=== PATIENT | male | born 1950 | race Caucasian/White ===

== ENCOUNTER 2017-12-29 18:15 | Inpatient (IN) ==
--- NOTE | 2017-12-29 18:29 | Emergency Department Note ---
Disposition Clinical Impression: Acute renal insufficiency, Hx of congestive heart failure UTI (urinary tract infection) Qualifiers: Urinary tract infection type: acute cystitis Hematuria presence: with hematuria Qualified Code(s): N30.01 - Acute cystitis with hematuria Disposition: Admitted As Inpatient Condition: Undetermined [facility]: [facility] [Primary Care Provider[facility] - Forms: ED Satisfaction Letter Time of Disposition: 19:53 General Adult HPI - General Chief complaint: ED Fall Stated complaint: weakness Time Seen by Provider: 12/29/17 18:17 Source: patient, EMS Mode of arrival: EMS Limitations: no limitations Nursing Notes Reviewed: Yes Vital Signs Reviewed: Yes - History of Present Illness HPI Narrative: 68-year-old male as a transfer from the [facility]. The patient currently lives at a senior care and his sponsor took him to the [place] urgent care after the patient fell. The patient was complaining of back pain so he was given an injection of Toradol. In addition the patient was seen at the [facility] where he had lab work that demonstrated acute renal failure with a creatinine of 4. The patient was subsequently transferred to [facility] emergency department for further evaluation and workup. The patient has a history of atypical schizophrenia and is expressing flight of ideas. The patient is alert and he is oriented to person place and time. He is answering all questions appropriately but again is experiencing some flight of ideas. The patient has noted to have some foul smelling urine. He denies any other complaints other than back pain at this time. Patient's hemoglobin is 14.4. Platelet count 254. Potassium 4.3. BUNs 51. Creatinine 4.04. GFR 15.8. These labs were performed at the [facility]. - Related Data Allergies Allergy/AdvReac Type Severity Reaction Status Date / Time haloperidol [From Haldol] AdvReac Intermediate Agitated Verified 12/29/17 18:23 All systems ED: reviewed and negative except as stated. Constitutional: Reports: weakness. Denies: fever, chills ENT ED: Denies: congestion Cardiovascular: Denies: chest pain Respiratory: Denies: dyspnea Gastrointestinal: Denies: abdominal pain Musculoskeletal: Reports: back pain. Denies: neck pain, arthralgia, myalgia Integumentary: Reports: lesions Neurological: Reports: weakness. Denies: headache, numbness, paresthesias, confusion Past Medical History - Past Medical History Attestation: Yes The following information was validated with the patient. 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) - Social History Smoking Status: Never smoker Alcohol use: Reports: none Drug use: Reports: none Physical Exam - General Limitations: no limitations General appearance: alert, in no apparent distress - Head Head exam: atraumatic, normocephalic, normal inspection - Eye Eye exam: Present: normal appearance, PERRL, EOMI - ENT ENT exam: normal exam, normal oropharynx, mucous membranes moist - Neck Neck exam: Present: normal inspection, full ROM, trachea midline - Chest Chest inspection: Present: normal inspection, symmetric chest wall rise - Respiratory Respiratory exam: Present: normal lung sounds bilaterally - Cardiovascular Cardiovascular exam: Present: regular rate, normal rhythm, normal heart sounds - Abdominal Exam Abdominal exam: Present: soft, Non-Tender, other (Right inguinal wound). Absent : tenderness, distention, guarding, rebound, rigidity - Extremities Exam Extremities exam: Present: normal inspection, full ROM. Absent: tenderness, pedal edema - Neurological Exam Neurological exam: Present: alert, oriented X3, CN II-XII intact - Expanded Neurological Exam Patient oriented to: Present: person, place, time Speech: Present: fluid speech Cranial nerves: EOM function (II, III, IV, ): Normal, facial sensation (V): Normal, facial palsy (VII): Normal Motor strength - LUE: 4/5 Motor strength - RUE: 4/5 Motor strength - LLE: 4/5 Motor strength - RLE: 4/5 Sensory exam upper extremity: light touch: Normal Sensory exam lower extremity: light touch: Normal Coma Scale Eye Opening: Spontaneous Coma Scale Motor Response: Obeys Commands Coma Scale Verbal Response: Oriented Coma Scale Total: 15 - Psychiatric Psychiatric exam: Present: other (Flight of ideas) Course Vital Signs Temperature 97.9 F 12/29/17 18:25 Pulse Rate 84 12/29/17 18:25 Respiratory Rate 16 12/29/17 18:25 Blood Pressure 132/77 12/29/17 18:25 O2 Sat by Pulse Oximetry 97 12/29/17 18:25 Temperature 97.9 F 12/29/17 18:35 Pulse Rate 84 12/29/17 18:35 Respiratory Rate 16 12/29/17 18:35 Blood Pressure 132/77 12/29/17 18:35 O2 Sat by Pulse Oximetry 97 12/29/17 18:35 Oxygen Delivery Oxygen Delivery Room Air Medical Decision Making - MDM Narrative Medical decision making narrative: Patient's workup in the emergency department demonstrates findings consistent with a urinary tract infection. The [facility] labs revealed a creatinine of 4.04 which were repeated here at [facility]. The patient had a CT of his head, cervical spine, lumbar and thoracic spines as well as pelvis. They revealed no acute process. The patient's pelvis was imaged due to a right inguinal wound that is noted in his right inguinal region that he states has been there for "years". The patient was found to have a urinary tract infection that is nitrite positive. She was given 1 g or Rocephin here in the emergency department. Given the patient's elevated creatinine, he was administered 1 L of IV fluids here in the ED. This was also the recommendation by Dr. Bennett get her and nephrology. He had no further recommendations other than a CPK level. The patient does take Seroquel and has a history of extrapyramidal effects but this was primarily associated with haloperidol in the past. The patient is not exhibiting any extrapyramidal effects at this time. He does have a flight of ideas which is likely associated with the patient's known history of schizophrenia. The patient is afebrile and is not tachycardic here in the emergency department. We will admit the patient to the hospital at this time for further workup and care and nephrology consult which was placed. Accepted by Dr. Harry. - Medical Records Medical records reviewed: Yes I reviewed the patient's medical records. - Lab Data Lab Results 12/29/17 Range/Units 18:36 Urine Color Yellow (Yellow) Urine Clarity Cloudy A (Clear) Urine pH 7.0 (5.0-8.0) pH Units Ur Specific [place] 1.020 (1.010-1.025) Urine Protein 100 H (Neg-Trace) mg/dL Urine Glucose (UA) Normal (Normal) mg/dL Urine Ketones Negative (Negative) mg/dL Urine Blood Large H (Negative) Urine Nitrite Positive A (Negative) Urine Bilirubin Negative (Negative) Urine Urobilinogen Normal (Normal) mg/dL Ur Leukocyte Esterase Large H (Negative) Urine Microscopic RBC Present (0-3) per hpf Urine Microscopic WBC TNTC H (0-3) per hpf Urine Bacteria Present (None-Few) per hpf Ur Culture Indicated? YES A (NO) - Radiology Data Radiology results reviewed: Yes I reviewed the patient's radiology results. Cervical Spine CT 12/29/17 18:23 IMPRESSION: No acute abnormality of the cervical spine. Severe degenerative changes with canal stenosis and foraminal stenosis at multiple levels. D/ / 12/29/2017 19:28:58 Delfina Hobbs MD / earnold Interpreting Provider: Delfina Hobbs MD Head CT 12/29/17 18:23 IMPRESSION: No acute intracranial abnormality. D/ / Delfina Hobbs MD / Delfina Hobbs MD Interpreting Provider: Delfina Hobbs MD Lumbar Spine CT 12/29/17 18:23 IMPRESSION: No evidence of acute traumatic injury of the thoracic or lumbar spine. Degenerative changes as described. D/ / Miguel Houston / Miguel Houston Interpreting Provider: Miguel Houston Pelvis CT 12/29/17 18:23 IMPRESSION: Nonspecific soft tissue air density in the left gluteal region Bilateral inguinal hernias. The hernia on the right contains multiple small bowel loops without obstruction. Hernia on the left contains fat extending inferiorly into the scrotal region. No inguinal ulceration or abscess. D/ / Pete Blancas / Pete Blancas Interpreting Provider: Pete Blancas Thoracic Spine CT 12/29/17 18:23 IMPRESSION: No evidence of acute traumatic injury of the thoracic or lumbar spine. Degenerative changes as described. D/ / Miguel Houston / Miguel Houston Interpreting Provider: Miguel Houston - EKG Data EKG #1 EKG attestation: Yes I reviewed and interpreted this EKG. EKG results narrative: Heart rate 85 beats for minute. Normal sinus rhythm. No ST elevation or ST depression noted.
[2017-12-29 18:48] LABS: Bilirubin,Urine Negative (Negative); Blood,Urine Large (Negative); Clarity,Urine Cloudy (Clear); Color,Urine Yellow (Yellow); Glucose,Urine (UA) Normal (Normal); Ketones,Urine Negative (Negative); Leukocyte Esterase,Urine Large (Negative); Nitrite,Urine Positive (Negative); Protein,Urine 100 mg/dL (Neg-Trace); Urobilinogen,Urine Normal (Normal)
[2017-12-29 18:54] LABS: WBC,Urine TNTC per hpf (0-3)
[2017-12-29 18:55] LABS: Bacteria,Urine Present per hpf (None-Few); RBC,Urine Present per hpf (0-3)
[2017-12-29] MEDS ORDERED: cefTRIAXone 1,000 MG in Water for inj. (sterile) 20 ML 10 ML IVP ONE (19:01)
--- NOTE | 2017-12-29 19:13 | Emergency Department Note ---
Disposition Clinical Impression: Acute renal insufficiency Disposition: Admitted As Inpatient Forms: ED Satisfaction Letter General Adult HPI - General Chief complaint: ED Weakness Stated complaint: weakness Time Seen by Provider: 12/29/17 18:17 Source: patient, EMS Mode of arrival: EMS Limitations: no limitations - History of Present Illness Pain Scale: 0 - Related Data Allergies Allergy/AdvReac Type Severity Reaction Status Date / Time haloperidol [From Haldol] AdvReac Intermediate Agitated Verified 12/29/17 18:23 Constitutional: Reports: weakness. Denies: fever, chills ENT ED: Denies: congestion Cardiovascular: Denies: chest pain Respiratory: Denies: dyspnea Gastrointestinal: Denies: abdominal pain Musculoskeletal: Reports: back pain. Denies: neck pain, arthralgia, myalgia Integumentary: Reports: lesions Neurological: Reports: weakness. Denies: headache, numbness, paresthesias, confusion Past Medical History - Past Medical History Medical history: Reports: hypertension Surgical history: Reports: other (Cancer resection in right inguinal region) Psychiatric history: Reports: bipolar, schizophrenia - Social History Smoking Status: Never smoker Smokeless Tobacco Status: No Alcohol use: Reports: none Drug use: Reports: none Physical Exam - General Limitations: no limitations General appearance: alert, in no apparent distress Course - Reevaluation(s) Reevaluation #1: Attestation note I did independently examine and verified the physical examination findings evaluation workup and disposition of this patient. We had independent face-to- face examination and discussion. The patient was seen with the emergency medicine resident Dr. Ahmet Coronado I examined this patient and my medical decision-making was reviewed with the Resident Physician/WET FINISHER WOOL/PA. I agree with the documented findings, disposition and treatment plan as described except to the extent set forth below. Briefly: 59-year-old male by EMS from the [facility]. Patient lives in a fdc there his sponsor took him after he had a fall to the urgent care at the [facility] where upon he was given IM Toradol and had some lab test drawn. She will that he has acute renal insufficiency with a creatinine of 4 which is new and different form. Patient does have a typical schizophrenia and has some flight of ideas here. He is in no acute distress he is afebrile stable vital signs. Patient will get imaging and labs with admission. An IV fluids. Admission disposition pending, provided 30 minutes of critical care service for this patient Time: 19:11 Vital Signs Temperature 97.9 F 12/29/17 18:25 Pulse Rate 84 12/29/17 18:25 Respiratory Rate 16 12/29/17 18:25 Blood Pressure 132/77 12/29/17 18:25 O2 Sat by Pulse Oximetry 97 12/29/17 18:25 Temperature 97.9 F 12/29/17 18:35 Pulse Rate 84 12/29/17 18:35 Respiratory Rate 16 12/29/17 18:35 Blood Pressure 132/77 12/29/17 18:35 O2 Sat by Pulse Oximetry 97 12/29/17 18:35 Oxygen Delivery Oxygen Delivery Room Air Medical Decision Making - Lab Data Lab Results 12/29/17 Range/Units 18:36 Urine Color Yellow (Yellow) Urine Clarity Cloudy A (Clear) Urine pH 7.0 (5.0-8.0) pH Units Ur Specific [place] 1.020 (1.010-1.025) Urine Protein 100 H (Neg-Trace) mg/dL Urine Glucose (UA) Normal (Normal) mg/dL Urine Ketones Negative (Negative) mg/dL Urine Blood Large H (Negative) Urine Nitrite Positive A (Negative) Urine Bilirubin Negative (Negative) Urine Urobilinogen Normal (Normal) mg/dL Ur Leukocyte Esterase Large H (Negative) Urine Microscopic RBC Present (0-3) per hpf Urine Microscopic WBC TNTC H (0-3) per hpf Urine Bacteria Present (None-Few) per hpf Ur Culture Indicated? YES A (NO)
[2017-12-29] MEDS ORDERED: 0.9 % Sodium Chloride 1,000 ML IVC ONE (19:26)
[2017-12-29 20:26] LABS: BUN/Creatinine Ratio 14 (6-26); Blood Urea Nitrogen 57 mg/dL (8-23); Calcium 9.5 mg/dL (8.6-10.3); Carbon Dioxide 22 mEq/L (23-29); Chloride 105 mEq/L (98-107); Creatine Kinase 302 Units/L (30-223); Glucose 220 mg/dL (70-105); Osmolality,Calculated 305 (280-300); Potassium 4.2 mEq/L (3.5-5.1); Sodium 136 mEq/L (136-145); eGFR For African Americans 18 (> 60); eGFR For Non-African Americans 14 (> 60)
[2017-12-29 20:27] LABS: Troponin I < 0.03 ng/mL (< 0.04)
[2017-12-29] MEDS ORDERED: Naloxone 0.4 MG/ML INJ IVP PRN (20:34)
[2017-12-29] MEDS ORDERED: Acetaminophen 325 MG TABLET PO PRN (20:34)
[2017-12-29] MEDS ORDERED: *HR* HYDROcodone/Acet 5/325 mg TABLET PO PRN (20:34)
[2017-12-29 21:00] LABS: Sodium, Urine 63.7 mEq/L
[2017-12-29] MEDS: 0.9 % Sodium Chloride 1,000 ML IVC SCH (21:19)
--- NOTE | 2017-12-29 21:33 | Internal Med History&Physical ---
Date of Encounter: 12/29/17 Time of Encounter: 20:00 Internal Medicine - H&P: HPI Chief complaint: Fall Admitted From: Long-term Nursing Facility Plans for Post Hospital Care: Transfer Detention Care History of present illness: Mr. Mendiola is a 67 year old male transferred from [facility] to our ER for fall and acute renal failure. Possible medical history is significant for schizophrenia. Patient presented to [facility] from group living home for fall. Patient has mechanical fall today when he went to the bathroom. Patient denies loss of consciousness, denies dizziness, denies head injury. Patient has no chest pain , shortness of breath, nausea, vomiting, diarrhea, or fever. Patient denies urination symptoms like dysuria or burning on urination. In [facility], patient was found creatinine high to 4.03. Patient said he walks well until 4 weeks ago, when he starts to use walker because of physical deconditioning. Patient has difficult to go to bathroom by himself and has decreased water intake. In our ER, UA shows UTI. Patient was admitted for acute renal failure and UTI. Past Med Surg Social Fam HX - Past Medical History Medical history: hypertension Psychiatric history: bipolar, schizophrenia - Past Surgical History Surgical History: other (Cancer resection in right inguinal region) Additional surgical history: kidney stone removal - Social History Smoking Status: Never smoker Smokeless Tobacco Status: No Alcohol use: none Drug use: none - Family History Mother History Unknown: Yes Internal Medicine - H&P: Meds 3 Allergy/AdvReac Type Severity Reaction Status Date / Time haloperidol [From Haldol] AdvReac Intermediate Agitated Verified 12/29/17 18:23 All Systems PM: A 10-system review of systems was performed and is negative for pertinent findings except as documented above in the HPI. - Constitutional Vitals: Temp Pulse Resp BP Pulse Ox 97.9 F 79 16 151/82 95 12/29/17 21:07 12/29/17 21:07 12/29/17 21:07 12/29/17 21:07 12/29/17 21:07 General appearance: Present: A&O X 3, no acute distress, answers questions appropriately - Head Head exam: Present: atraumatic, normocephalic - Eye Eye exam: Present: PERRL, conjuntiva pink, sclera anicteric Pupils: Present: PERRL - Neck Neck exam general surgery: Present: supple, trachea midline. Absent: lymphadenopathy - Respiratory Respiratory exam: Present: CTAB. Absent: accessory muscle use, rales, rhonchi, wheezes - Cardiovascular Cardiovascular exam: Present: RRR, +S1, +S2. Absent: diastolic murmur, gallop, rubs, systolic murmur - GI/Abdominal GI/Abdominal exam: Present: normal bowel sounds, soft, no peritoneal signs. Absent: distended, tenderness - Extremities Exam Extremities exam: Present: warm, radial pulses palpable and symmetrical. Absent : calf tenderness, cyanotic, pedal edema - Neurological Exam Neurological exam: Present: CN II-XII intact, oriented X3, no focal deficits. Absent: pronater drift, facial droop, speech deficit - Skin Skin exam: Present: dry, intact Internal Med - H&P Results - Labs CBC & Chem 7: 12/29/17 18:24 - Assessment and plan (1) Acute renal failure Current Visit: Yes Status: Acute Assessment and plan: Etiology is undetermined. Probably caused by decreased fluid intake. - Nephrology consult called by ER, recommend check CK, which is a mild elevated at 302 - Continue IV fluid - Check urine creatinine and the urine sodium - Renal ultrasound to rule out obstruction - Closely monitor renal function, avoid nephrotoxic medications Qualifiers: Acute renal failure type: unspecified Qualified Code(s): N17.9 - Acute kidney failure, unspecified (2) Schizophrenia Current Visit: Yes Status: Acute Assessment and plan: Continue closely monitor patient and continue intramuscular haldol after discharge. Qualifiers: Schizophrenia type: unspecified Qualified Code(s): F20.9 - Schizophrenia, unspecified (3) UTI (urinary tract infection) Current Visit: Yes Status: Acute Assessment and plan: Rocephin IV. Follow up urine culture Qualifiers: Urinary tract infection type: acute cystitis Hematuria presence: without hematuria Qualified Code(s): N30.00 - Acute cystitis without hematuria (4) Tobacco abuse Current Visit: Yes Status: Acute Assessment and plan: Will place patient on nicotine patch. (5) Hx of congestive heart failure Current Visit: Yes Status: Acute Assessment and plan: Appears euvolemic at this point. Closer monitor fluid status and started with low rate IV fluid for acute renal failure - Time Spent With Patient Total time spent is greater than 50% in coordination of care (as documented) at patient's floor/unit and/or counseling patient: 40 minutes Greater than 35 minutes
[2017-12-29] MEDS: Nicotine 21 MG PATCH.TD24 TD SCH (23:09)
[2017-12-30 05:30] LABS: Basophils % 0.1 %; Hemoglobin 13.5 g/dL (12.9-16.9); Immature Granulocytes % 0.5 % (0-4); Lymphocytes # 0.6 K/mcL (0.6-4.6); Lymphocytes % 6.5 %; Mean Corpuscular HGB Conc 33.8 g/dL (31.6-35.5); Mean Corpuscular Volume 88.9 fL (83.0-100.0); Mean Platelet Volume 10.3 fL (9.4-12.4); Monocytes # 0.2 K/mcL (0.0-1.3); Monocytes % 2.7 %; Neutrophils # 7.7 K/mcL (1.6-8.9); Platelet Count 224 K/mcL (140-400); Red Cell Distribution Width 13.5 % (11.5-14.5); Segmented Neutrophils % 90.2 %
[2017-12-30] MEDS: *HR* Heparin 5,000 UNIT/ML VIAL SQ SCH ×2 (05:41→17:41)
[2017-12-30 05:47] LABS: Calcium 9.4 mg/dL (8.6-10.3); Magnesium 2.3 mg/dL (1.6-2.6); Phosphorous 2.9 mg/dL (2.7-4.5); Potassium 4.5 mEq/L (3.5-5.1)
[2017-12-30] MEDS: 0.9 % Sodium Chloride 1,000 ML IVC SCH (06:45)
[2017-12-30 07:48] LABS: Estimated Average Glucose 148 mg/dl; Hemoglobin A1C 6.8 %
[2017-12-30] MEDS: Nicotine 21 MG PATCH.TD24 TD SCH (09:38)
--- NOTE | 2017-12-30 11:20 | Nephrology Consult Note ---
Date of Encounter: 12/30/17 Time of Encounter: 09:55 Assessment and Plan (1) Acute renal failure Current Visit: Yes Status: Acute Nonoliguric and no baseline prior lab data immediately available, so I am unable to determine if this is MENA vs MENA on CKD vs progressive CKD. I recommend requesting records from the [place]. Will start renal work up with renal U/S, serologies and agree with empiric antibiotics for the purulent appearing urine. His UA did reveal Proteinuria of 100 and Microscopic hematuria, so will check serologies and check U P/C and U M/ C ratios. In the meantime, he does not have urgent dialysis indications, so continue following a renal protective and conservative strategy by avoiding nephrotoxins such as NSAIDs, IV contrast, Vanco, Bactrim; to collect strict I/Os, daily weights; to follow a renal diet; to dose Rx that are renally cleared by GFR. Thank you for having consulting the [facility] group. Will follow with you. Qualifiers: Acute renal failure type: unspecified Qualified Code(s): N17.9 - Acute kidney failure, unspecified (2) UTI (urinary tract infection) Current Visit: Yes Status: Acute Qualifiers: Urinary tract infection type: acute cystitis Hematuria presence: without hematuria Qualified Code(s): N30.00 - Acute cystitis without hematuria (3) Proteinuria Current Visit: Yes Status: Acute Qualifiers: Proteinuria type: unspecified Qualified Code(s): R80.9 - Proteinuria, unspecified (4) Hematuria Current Visit: Yes Status: Acute Qualifiers: Hematuria type: unspecified type Qualified Code(s): R31.9 - Hematuria, unspecified History of Present Illness - Reason for Consult Consult date: 12/29/17 Acute Kidney Injury Requesting physician: Morgan Harry - Chief Complaint MENA - History of Present Illness Pete Mendiola is a pleasant 67 y/o male who presented with findings of renal dysfunction. This is his first encounter / hospitalization in the [facility] system and there are no baseline SCr or other labs in our inpatient or outpatient EHR. He stated that he does not have a known renal function; however, he has the most impressive pressured speech from his reported hx of Schizoprenia, and was not able to focus or provide very little meaningful history. He said he has bee taking "Advil" but then he quickly reverted to talking about events from 30-40 years ago. He was not able to provid a family history, recent history of events or any more ROS. The floor RN was present and said that the toth that she had just drained was purulent appearing. 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 Past Med Surg Social Fam HX - Past Medical History Medical history: hypertension Psychiatric history: bipolar, schizophrenia - Past Surgical History Surgical History: other Additional surgical history: kidney stone removal - Social History Smoking Status: Never smoker Smokeless Tobacco Status: No Alcohol use: none Drug use: none - Family History Mother History Unknown: Yes Medications and Allergies Aspirin [Lo-Dose Aspirin EC] 81 mg PO DAILY 12/30/17 [History] Cholecalciferol (D-3) [Vitamin D] 1,000 unit PO DAILY 12/30/17 [History] Furosemide [Lasix] 20 mg PO DAILY 12/30/17 [History] Methocarbamol [Robaxin-750] 750 mg PO BID PRN 12/30/17 [History] Metoprolol Succinate [Toprol Xl] 25 mg PO DAILY 12/30/17 [History] Quetiapine Fumarate [Seroquel] 200 mg PO QAM 12/30/17 [History] Quetiapine Fumarate [Seroquel] 400 mg PO QPM 12/30/17 [History] Terazosin HCl 2 mg PO HS 12/30/17 [History] 3 Allergy/AdvReac Type Severity Reaction Status Date / Time haloperidol [From Haldol] AdvReac Intermediate Agitated Verified 12/30/17 13:26 Review of Systems ROS unobtainable: due to mental status (his mental health history led to forced speach and he was not able to focus and provide any meaningful recent history. ) Exam - Vital Signs Vital signs: Initial Vital Signs Temp Pulse Resp BP Pulse Ox 97.9 F 84 16 132/77 97 12/29/17 18:25 12/29/17 18:25 12/29/17 18:25 12/29/17 18:25 12/29/17 18:25 Vital Signs - Last 8 Hours Temp Pulse Resp BP Pulse Ox 12/30/17 09:40 97 12/30/17 07:00 97.4 F L 87 16 152/81 97 12/30/17 03:49 97.8 F 78 17 131/81 92 Intake and Output 12/29/17 12/30/17 12/30/17 23:59 07:59 15:59 Intake Total 240 / 250 1000 / 1000 480 / 480 Output Total 300 / 300 650 / 650 550 / 550 Balance -60 / -50 350 / 350 -70 / -70 Intake: IV Fluids 1000 / 1000 0.9 % Sodium Chloride 1,000 ML 1000 / 1000 @ 100 mls/hr IVC .Q10H [facility] Rx#: [id number] Oral 240 / 240 480 / 480 Output: Urine 550 / 550 Catheter 300 / 300 650 / 650 Urethral (Toth) 300 / 300 Other: Meal Breakfast Percent of Meal Consumed 100% Weight 101.6 kg Patient Weight 12/30/17 23:59 Weight 101.6 kg - General Appearance General appearance: well-developed, well-nourished, appears started age EENT: ATNC, PERRL, mucous membranes moist Additional Comments: Very poor dentition. Neck: supple Respiratory: clear Cardiology: no edema, regular rate, regular rhythm, normal S1, normal S2 Gastrointestinal: normoactive bowel sounds, no tenderness, no guarding, obese Integumentary: no rash, warm and dry Neurologic: no focal deficit, no asterixis Musculoskeletal: no erythema, no clubbing Psychiatric: cooperative, pressured speech Results - Lab Results 12/31/17 04:33 12/31/17 04:33 Most recent lab results Calcium 9.4 mg/dL (8.6-10.3) 12/30/17 04:44 Phosphorus 2.9 mg/dL (2.7-4.5) 12/30/17 04:44 Magnesium 2.3 mg/dL (1.6-2.6) 12/30/17 04:44 Urine Creatinine 75 mg/dL 12/29/17 18:36 Urine Sodium 63.7 mEq/L 12/29/17 18:36 I reviewed the labs, vitals, med lists, imaging and progress notes. Consult Discharge Plan - Plan Referrals: [facility],PC[facility] [Primary Care Provider] -
--- NOTE | 2017-12-30 11:57 | Internal Med Progress Note ---
Date of Encounter: 12/30/17 Time of Encounter: 11:55 - Assessment and plan (1) UTI (urinary tract infection) Current Visit: Yes Status: Acute Assessment and plan: Rocephin IV. Follow up urine culture Qualifiers: Urinary tract infection type: acute cystitis Hematuria presence: without hematuria Qualified Code(s): N30.00 - Acute cystitis without hematuria (2) Hx of congestive heart failure Current Visit: Yes Status: Acute Assessment and plan: Appears euvolemic at this point. Closer monitor fluid status and started with low rate IV fluid for acute renal failure (3) Acute renal failure Current Visit: Yes Status: Acute Assessment and plan: Etiology is undetermined. Probably caused by decreased fluid intake. - Nephrology consult called by ER, recommend check CK, which is a mild elevated at 302 - Continue IV fluid - Check urine creatinine and the urine sodium - Renal ultrasound to rule out obstruction - Closely monitor renal function, avoid nephrotoxic medications Qualifiers: Acute renal failure type: unspecified Qualified Code(s): N17.9 - Acute kidney failure, unspecified (4) Schizophrenia Current Visit: Yes Status: Acute Assessment and plan: Continue closely monitor patient and continue intramuscular haldol after discharge. Qualifiers: Schizophrenia type: unspecified Qualified Code(s): F20.9 - Schizophrenia, unspecified (5) Tobacco abuse Current Visit: Yes Status: Acute Assessment and plan: Will place patient on nicotine patch. (6) DVT prophylaxis Current Visit: Yes Status: Acute Assessment and plan: sc heparin - Time Spent With Patient Total time spent is greater than 50% in coordination of care (as documented) at patient's floor/unit and/or counseling patient: - Subjective Interval history: No acute events overnight - Constitutional Vitals: Temp Pulse Resp BP Pulse Ox 97.4 F L 87 16 152/81 97 12/30/17 07:00 12/30/17 07:00 12/30/17 07:00 12/30/17 07:00 12/30/17 09:40 General appearance: Present: A&O X 3, no acute distress, answers questions appropriately - Head Head exam: Present: atraumatic, normocephalic - Eye Eye exam: Present: PERRL, conjuntiva pink, sclera anicteric Pupils: Present: PERRL - Neck Neck exam general surgery: Present: supple, trachea midline. Absent: lymphadenopathy - Respiratory Respiratory exam: Present: CTAB. Absent: accessory muscle use, rales, rhonchi, wheezes - Cardiovascular Cardiovascular exam: Present: RRR, +S1, +S2. Absent: diastolic murmur, gallop, rubs, systolic murmur - GI/Abdominal GI/Abdominal exam: Present: normal bowel sounds, soft, no peritoneal signs. Absent: distended, tenderness - Extremities Exam Extremities exam: Present: warm, radial pulses palpable and symmetrical. Absent : calf tenderness, cyanotic, pedal edema - Neurological Exam Neurological exam: Present: CN II-XII intact, oriented X3, no focal deficits. Absent: pronater drift, facial droop, speech deficit - Skin Skin exam: Present: dry, intact Internal Medicine: Result - Labs CBC & Chem 7: 12/30/17 04:44 12/30/17 04:44 Labs: Short CBC 12/30/17 Range/Units 04:44 WBC 8.5 (4.3-11.1) K/mcL Hgb 13.5 (12.9-16.9) g/dL Hct 40.0 (37.5-50.1) % Plt Count 224 (140-400) K/mcL Neutrophils # 7.7 (1.6-8.9) K/mcL BMP 12/30/17 04:44 Sodium 136 Potassium 4.5 Chloride 108 H Carbon Dioxide 20 L BUN 56 H Creatinine 3.74 H Glucose 198 H Calcium 9.4 Consult Discharge Plan - Plan [facility]errals: [facility] [Primary Care Provider] -
[2017-12-30 12:53] LABS: Protein/Creatinine Ratio,Urine 1.11 mg/mg (0.00-0.20)
[2017-12-30] MEDS: Clotrimazole 1% CRM 15 GM TUBE TP SCH ×2 (14:59→20:47)
[2017-12-30] MEDS: cefTRIAXone 1,000 MG in Water for inj. (sterile) 20 ML 10 ML IVP SCH (17:41)
[2017-12-31 05:02] LABS: Basophils % 0.4 %; Eosinophils # 0.2 K/mcL (0.0-0.6); Eosinophils % 2.2 %; Hematocrit 39.8 % (37.5-50.1); Hemoglobin 13.1 g/dL (12.9-16.9); Immature Granulocytes % 0.4 % (0-4); Lymphocytes # 1.7 K/mcL (0.6-4.6); Lymphocytes % 16.3 %; Mean Corpuscular HGB Conc 32.9 g/dL (31.6-35.5); Mean Corpuscular Hemoglobin 30.4 pg (28.0-33.3); Mean Corpuscular Volume 92.3 fL (83.0-100.0); Mean Platelet Volume 10.4 fL (9.4-12.4); Monocytes # 0.9 K/mcL (0.0-1.3); Neutrophils # 7.3 K/mcL (1.6-8.9); Platelet Count 203 K/mcL (140-400); Red Blood Count 4.31 M/mcL (4.19-5.50); Red Cell Distribution Width 13.7 % (11.5-14.5); Segmented Neutrophils % 71.7 %
[2017-12-31 05:22] LABS: Albumin 3.5 g/dL (3.5-5.7); Calcium 8.8 mg/dL (8.6-10.3); Magnesium 2.2 mg/dL (1.6-2.6); Phosphorous 3.8 mg/dL (2.7-4.5); Potassium 4.5 mEq/L (3.5-5.1)
[2017-12-31 05:58] LABS: Hepatitis A Antibody IgM Nonreactive (Nonreactive); Hepatitis B Core IgM Nonreactive (Nonreactive); Hepatitis B Surface Antigen Nonreactive (Nonreactive)
[2017-12-31] MEDS: *HR* Heparin 5,000 UNIT/ML VIAL SQ SCH ×2 (06:10→17:42)
[2017-12-31] MEDS: Nicotine 21 MG PATCH.TD24 TD SCH (09:04)
[2017-12-31] MEDS: Clotrimazole 1% CRM 15 GM TUBE TP SCH ×2 (09:05→22:07)
--- NOTE | 2017-12-31 09:51 | Electrocardiograph Report ---
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
--- NOTE | 2017-12-31 10:44 | Internal Med Progress Note ---
Date of Encounter: 12/31/17 Time of Encounter: 10:45 - Assessment and plan (1) Acute renal failure Current Visit: Yes Status: Acute Assessment and plan: Etiology is undetermined. Probably caused by decreased fluid intake/ dehydration. Unknown baseline. Records pending. Continue IV fluids. Monitor daily creatinine. Renal following. Also had protenuria with protein/creatinine ratio of 1.11. Qualifiers: Acute renal failure type: unspecified Qualified Code(s): N17.9 - Acute kidney failure, unspecified (2) UTI (urinary tract infection) Current Visit: Yes Status: Acute Assessment and plan: Rocephin IV. Follow up urine culture Qualifiers: Urinary tract infection type: acute cystitis Hematuria presence: without hematuria Qualified Code(s): N30.00 - Acute cystitis without hematuria (3) Hx of congestive heart failure Current Visit: Yes Status: Acute Assessment and plan: Appears euvolemic at this point. Closer monitor fluid status and started with low rate IV fluid for acute renal failure (4) Schizophrenia Current Visit: Yes Status: Acute Assessment and plan: Continue closely monitor patient and continue intramuscular haldol after discharge. Qualifiers: Schizophrenia type: unspecified Qualified Code(s): F20.9 - Schizophrenia, unspecified (5) Tobacco abuse Current Visit: Yes Status: Acute Assessment and plan: Will place patient on nicotine patch. (6) DVT prophylaxis Current Visit: Yes Status: Acute Assessment and plan: sc heparin (7) Right groin wound Current Visit: Yes Status: Acute Assessment and plan: Likely fungal due to moisture. continue clotrimazole cream , consult wound care Qualifiers: Encounter type: initial encounter Qualified Code(s): S31.109A - Unspecified open wound of abdominal wall, unspecified quadrant without penetration into peritoneal cavity, initial encounter - Time Spent With Patient Total time spent is greater than 50% in coordination of care (as documented) at patient's floor/unit and/or counseling patient: - Subjective Interval history: No acute events overnight - Constitutional Vitals: Temp Pulse Resp BP Pulse Ox 98.2 F 82 16 144/81 93 12/31/17 08:00 12/31/17 08:00 12/31/17 08:00 12/31/17 08:00 12/31/17 09:28 General appearance: Present: A&O X 3, no acute distress, answers questions appropriately - Head Head exam: Present: atraumatic, normocephalic - Eye Eye exam: Present: PERRL, conjuntiva pink, sclera anicteric Pupils: Present: PERRL - Neck Neck exam general surgery: Present: supple, trachea midline. Absent: lymphadenopathy - Respiratory Respiratory exam: Present: CTAB. Absent: accessory muscle use, rales, rhonchi, wheezes - Cardiovascular Cardiovascular exam: Present: RRR, +S1, +S2. Absent: diastolic murmur, gallop, rubs, systolic murmur - GI/Abdominal GI/Abdominal exam: Present: normal bowel sounds, soft, no peritoneal signs. Absent: distended, tenderness - Extremities Exam Extremities exam: Present: warm, radial pulses palpable and symmetrical. Absent : calf tenderness, cyanotic, pedal edema - Neurological Exam Neurological exam: Present: CN II-XII intact, oriented X3, no focal deficits. Absent: pronater drift, facial droop, speech deficit - Skin Skin exam: Present: dry, intact Internal Medicine: Result - Labs CBC & Chem 7: 12/31/17 04:33 12/31/17 04:33 Labs: Short CBC 12/31/17 Range/Units 04:33 WBC 10.2 (4.3-11.1) K/mcL Hgb 13.1 (12.9-16.9) g/dL Hct 39.8 (37.5-50.1) % Plt Count 203 (140-400) K/mcL Neutrophils # 7.3 (1.6-8.9) K/mcL BMP 12/31/17 04:33 Sodium 140 Potassium 4.5 Chloride 113 H Carbon Dioxide 20 L BUN 56 H Creatinine 3.48 H Glucose 138 H Calcium 8.8 Liver Function 12/31/17 Range/Units 04:33 Albumin 3.5 (3.5-5.7) g/dL - Impressions Impressions Chest X-Ray 12/30/17 11:58 IMPRESSION: No acute cardiopulmonary findings. Questionable increased density behind the left 1st rib, favored to reflect summation artifact. Recommend further evaluation with CT to exclude underlying lesion. D/ / Bryant Eller / Bryant Eller Interpreting Provider: Bryant Eller Consult Discharge Plan - Plan [facility]errals: [facility] [Primary Care Provider] -
[2017-12-31] MEDS: 0.9 % Sodium Chloride 1,000 ML IVC SCH (11:23)
--- NOTE | 2017-12-31 13:11 | Nephrology Progress Note ---
Date of Encounter: 12/31/17 Time of Encounter: 12:55 - Assessment and Plan (1) Acute renal failure Current Visit: Yes Status: Acute Continue volume expansion for presumed prerenal MENA. Pending serologies but thus far the hepatitis was negative (so unlikely to have an MPGN or MN). Please let [facility] know [facility]. He has subnephrotic proteinuria and hematuria on admission. So exploring serologies for a potential GN. Nevertheless, his renal function is easily trending better with IVF, so will hold off on a renal biopsy for now. Given his obvious Psych history, he may have been previously prescribed [place] , which over a buttermaker exposure could pose a risk for CKD. No indication for a renal biopsy. Cont to follow a renal protective strategy. 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 Thank you Qualifiers: Acute renal failure type: unspecified Qualified Code(s): N17.9 - Acute kidney failure, unspecified (2) UTI (urinary tract infection) Current Visit: Yes Status: Acute As per primary Qualifiers: Urinary tract infection type: acute cystitis Hematuria presence: without hematuria Qualified Code(s): N30.00 - Acute cystitis without hematuria (3) Proteinuria Current Visit: Yes Status: Acute See above Qualifiers: Proteinuria type: unspecified Qualified Code(s): R80.9 - Proteinuria, unspecified (4) Hematuria Current Visit: Yes Status: Acute See above Qualifiers: Hematuria type: unspecified type Qualified Code(s): R31.9 - Hematuria, unspecified (5) Vitamin D deficiency Current Visit: Yes Status: Acute Rec starting D3 five thousand units po daily. This will also help suppress iPTH and is affordable. (6) Secondary hyperparathyroidism (of renal origin) Current Visit: Yes Status: Acute See vit D comment above. Subjective Principal diagnosis: MENA Interval history: Pt was s/e with the RN at bedside. He was very hard to refocus in conversation with extreme pressured speech, thus limiting a complete subjective history. Objective - Vital Signs Vital signs: Vital Signs Temp Pulse Resp BP Pulse Ox 12/31/17 12:21 98.9 F 84 18 170/85 95 12/31/17 09:28 93 12/31/17 08:00 98.2 F 82 16 144/81 93 12/31/17 04:03 98.5 F 80 18 134/76 94 12/31/17 00:18 98.0 F 92 18 136/84 95 12/30/17 17:38 98.0 F 89 16 142/84 93 Intake and Output 12/30/17 12/31/17 12/31/17 23:59 07:59 15:59 Intake Total 480 / 480 240 / 240 Output Total 825 / 825 1050 / 1050 450 / 450 Balance -345 / -345 -1050 / -1050 -210 / -210 Intake: Oral 480 / 480 240 / 240 Output: Urine 450 / 450 0 / 0 Catheter 375 / 375 1050 / 1050 450 / 450 Other: Meal Dinner Breakfast Percent of Meal Consumed 75% 70% Weight 101.786 kg Patient Weight 12/31/17 23:59 Weight 101.786 kg - General Appearance Exam: General appearance: well-developed, well-nourished, appears started age EENT: ATNC, PERRL, mucous membranes moist Additional Comments: Very poor dentition. Neck: supple Respiratory: clear Cardiology: no edema, regular rate, regular rhythm, normal S1, normal S2 Gastrointestinal: normoactive bowel sounds, no tenderness, no guarding, obese Integumentary: no rash, warm and dry Neurologic: no focal deficit, no asterixis Musculoskeletal: no erythema, no clubbing Psychiatric: cooperative, pressured speech - Lab 12/31/17 04:33 12/31/17 04:33 Most recent lab results Calcium 8.8 mg/dL (8.6-10.3) 12/31/17 04:33 Phosphorus 3.8 mg/dL (2.7-4.5) 12/31/17 04:33 Magnesium 2.2 mg/dL (1.6-2.6) 12/31/17 04:33 Urine Creatinine 83 mg/dL 12/30/17 11:24 Urine Sodium 63.7 mEq/L 12/29/17 18:36 Urine Total Protein 92 mg/dL (1-14) H 12/30/17 11:24 Consult Discharge Plan - Plan [facility]errals: [facility] [Primary Care Provider] -
[2017-12-31] MEDS ORDERED: Lactulose Oral Soln 20 GM/30 ML UDC PO ONE (14:17)
[2017-12-31 15:58] LABS: Hepatitis C Virus Antibody Nonreactive (Nonreactive)
[2017-12-31] MEDS: cefTRIAXone 1,000 MG in Water for inj. (sterile) 20 ML 10 ML IVP SCH (17:42)
[2018-01-01] MEDS: 0.9 % Sodium Chloride 1,000 ML IVC SCH ×2 (01:21→13:27)
[2018-01-01] MEDS: *HR* Heparin 5,000 UNIT/ML VIAL SQ SCH ×2 (06:41→17:29)
[2018-01-01] MEDS: Clotrimazole 1% CRM 15 GM TUBE TP SCH ×2 (08:53→20:01)
[2018-01-01] MEDS: Nicotine 21 MG PATCH.TD24 TD SCH (08:53)
[2018-01-01] MEDS: Metoprolol XL (24 HR) Succ 25 MG TAB.ER.24H PO SCH (08:53)
--- NOTE | 2018-01-01 17:04 | Internal Med Progress Note ---
Date of Encounter: 01/01/18 Time of Encounter: 13:20 - Assessment and plan (1) Acute renal failure Current Visit: Yes Status: Acute Assessment and plan: Noted to have nonoliguric acute on chronic renal failure, unknown baseline serum creatinine. Also noted to be on diuretic as an outpatient. Continue IV hydration. Nephrology consult appreciated. Admitted with serum creatinine of 4.13, currently improving to 3.48. Avoid nephrotoxins. Hepatitis serology negative. Monitor urine output. Qualifiers: Acute renal failure type: unspecified Qualified Code(s): N17.9 - Acute kidney failure, unspecified (2) UTI (urinary tract infection) Current Visit: Yes Status: Acute Assessment and plan: Urinalysis suggestive of UTI. Urine culture noted to be grossly mixed and contaminated. Continue IV Rocephin. Qualifiers: Urinary tract infection type: acute cystitis Hematuria presence: without hematuria Qualified Code(s): N30.00 - Acute cystitis without hematuria (3) Hx of congestive heart failure Current Visit: Yes Status: Chronic Assessment and plan: Noted to be on beta scott and diuretic as an outpatient. Hold Lasix for now. (4) Schizophrenia Current Visit: Yes Status: Chronic Qualifiers: Schizophrenia type: unspecified Qualified Code(s): F20.9 - Schizophrenia, unspecified (5) Tobacco abuse Current Visit: Yes Status: Chronic (6) DVT prophylaxis Current Visit: Yes Status: Acute (7) Right groin wound Current Visit: Yes Status: Acute Assessment and plan: Likely fungal due to moisture. continue clotrimazole cream , consult wound care Qualifiers: Encounter type: initial encounter Qualified Code(s): S31.109A - Unspecified open wound of abdominal wall, unspecified quadrant without penetration into peritoneal cavity, initial encounter (8) Bipolar disorder Current Visit: Yes Status: Chronic Qualifiers: Active/Remission status: remission status unspecified Qualified Code(s): F31.9 - Bipolar disorder, unspecified (9) Chronic kidney disease Current Visit: Yes Status: Chronic Qualifiers: Chronic kidney disease stage: stage 3 (moderate) Qualified Code(s): N18.3 - Chronic kidney disease, stage 3 (moderate) - Time Spent With Patient Total time spent is greater than 50% in coordination of care (as documented) at patient's floor/unit and/or counseling patient: - Subjective Interval history: Unable to provide history due to underlying schizophrenia and hallucinations. Reports constipation, received enema, passing flatus. No ABDOMINAL pain, anorexia, nausea/vomiting; - Constitutional Vitals: Temp Pulse Resp BP Pulse Ox 98.0 F 81 17 155/91 93 01/01/18 15:29 01/01/18 15:29 01/01/18 15:29 01/01/18 15:29 01/01/18 15:29 General appearance: Present: A&O X 2, no acute distress. Absent: answers questions appropriately - Respiratory Respiratory exam: Present: CTAB (coarse breath sounds, rhonchi). Absent: accessory muscle use, rales, rhonchi, wheezes - Cardiovascular Cardiovascular exam: Present: RRR, +S1, +S2. Absent: diastolic murmur, gallop, rubs, systolic murmur - GI/Abdominal GI/Abdominal exam: Present: distended, normal bowel sounds, soft, no peritoneal signs. Absent: tenderness - Extremities Exam Extremities exam: Present: full ROM, warm, radial pulses palpable and symmetrical. Absent: calf tenderness, cyanotic, pedal edema Internal Medicine: Result - Labs CBC & Chem 7: 12/31/17 04:33 12/31/17 04:33 - Impressions Impressions Retroperitoneum Ultrasound 12/31/17 00:00 IMPRESSION: Right kidney is obscured by bowel gas and stool. Left kidney demonstrates cortical thinning but no evidence of hydronephrosis, nephrolithiasis or mass. D/ / Lindsey Garcia MD / Lindsey Garcia MD Interpreting Provider: Lindsey Garcia MD Consult Discharge Plan - Plan [facility]errals: [facility] [Primary Care Provider] -
[2018-01-01] MEDS: cefTRIAXone 1,000 MG in Water for inj. (sterile) 20 ML 10 ML IVP SCH (17:28)
--- NOTE | 2018-01-01 20:15 | Event Note ---
Date of Encounter: 01/01/18 Time of Encounter: 20:14 Nephrology Chart Review No new Renal labs today, but I would recommend continuing volume expansion for presumed prerenal MENA, and I recommend continuing efforts to [facility]. Will follow with you.
[2018-01-02] MEDS: 0.9 % Sodium Chloride 1,000 ML IVC SCH ×2 (02:30→16:22)
[2018-01-02] MEDS: *HR* Heparin 5,000 UNIT/ML VIAL SQ SCH ×2 (05:55→18:31)
[2018-01-02 07:59] LABS: Complement Component 3 113 mg/dL (88-201); Complement Component 4 24 mg/dL (10-40)
[2018-01-02 08:36] LABS: Albumin 3.6 g/dL (3.5-5.7); Calcium 8.9 mg/dL (8.6-10.3); Phosphorous 3.1 mg/dL (2.7-4.5); Potassium 4.7 mEq/L (3.5-5.1)
[2018-01-02] MEDS: Nicotine 21 MG PATCH.TD24 TD SCH (09:34)
[2018-01-02] MEDS: Clotrimazole 1% CRM 15 GM TUBE TP SCH ×2 (09:35→20:29)
[2018-01-02] MEDS: Metoprolol XL (24 HR) Succ 25 MG TAB.ER.24H PO SCH (09:35)
--- NOTE | 2018-01-02 10:29 | Nephrology Progress Note ---
Date of Encounter: 01/02/18 Time of Encounter: 10:28 - Assessment and Plan (1) Acute renal failure Current Visit: Yes Status: Acute MENA trending better and this suggests a prerenal etiology. I searched for any records from the [facility] but we have none. I've asked the floor RN and unit tender to be sure to request baseline renal labs from the [facility]. He has pending serologies, SPEP and K/L and it turns out that these have been drawn. Continue to follow a renal protective and conservative strategy. Given his obvious Psych history, he may have been previously prescribed [place] , which over a long-term exposure could pose a risk for CKD. No indication for a renal biopsy. Cont to follow a renal protective strategy. 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 Thank you Qualifiers: Acute renal failure type: unspecified Qualified Code(s): N17.9 - Acute kidney failure, unspecified (2) UTI (urinary tract infection) Current Visit: Yes Status: Acute As per primary Qualifiers: Urinary tract infection type: acute cystitis Hematuria presence: without hematuria Qualified Code(s): N30.00 - Acute cystitis without hematuria (3) Proteinuria Current Visit: Yes Status: Acute See above Qualifiers: Proteinuria type: unspecified Qualified Code(s): R80.9 - Proteinuria, unspecified (4) Hematuria Current Visit: Yes Status: Acute See above Qualifiers: Hematuria type: unspecified type Qualified Code(s): R31.9 - Hematuria, unspecified (5) Vitamin D deficiency Current Visit: Yes Status: Acute Rec starting D3 five thousand units po daily. This will also help suppress iPTH and is affordable. (6) Secondary hyperparathyroidism (of renal origin) Current Visit: Yes Status: Acute See vit D comment above. Subjective Principal diagnosis: MENA Interval history: Pt was s/e with the RN at bedside. He was very hard to refocus in conversation with extreme pressured speech, thus limiting a complete subjective history. Objective - Vital Signs Vital signs: Vital Signs Temp Pulse Resp BP Pulse Ox 01/02/18 09:45 93 01/02/18 07:50 97.5 F L 77 18 145/92 93 01/02/18 03:48 98.2 F 78 18 147/80 92 01/01/18 23:21 97.9 F 77 18 162/84 92 01/01/18 19:26 98.1 F 80 18 158/84 92 01/01/18 15:29 98.0 F 81 17 155/91 93 Intake and Output 01/01/18 01/02/18 01/02/18 23:59 07:59 15:59 Intake Total 490 / 490 1000 / 1000 360 / 360 Output Total 1150 / 1150 1525 / 1525 800 / 800 Balance -660 / -660 -525 / -525 -440 / -440 Intake: IV Fluids 1000 / 1000 0.9 % Sodium Chloride 1,000 ML 1000 / 1000 @ 75 mls/hr IVC .[id number] [facility] Rx #:[id number] Rocephin 1,000 MG In Water for inj. (sterile) 10 ML @ 600 mls/ hr IVP QPM ZAYRA Rx#:[id number] Oral 480 / 480 360 / 360 Output: Catheter 1150 / 1150 1525 / 1525 800 / 800 Urethral (Aranda) 500 / 500 Other: Meal small coffee black Breakfast Percent of Meal Consumed 85% 100% Stool Size Large Stool Consistency formed Stool Color Brown # Bowel Movements 1 Weight 100.6 kg Patient Weight 01/02/18 23:59 Weight 100.6 kg - General Appearance Exam: General appearance: well-developed, well-nourished, appears started age EENT: ATNC, PERRL, mucous membranes moist Additional Comments: Very poor dentition. Neck: supple Respiratory: clear Cardiology: no edema, regular rate, regular rhythm, normal S1, normal S2 Gastrointestinal: normoactive bowel sounds, no tenderness, no guarding, obese Integumentary: no rash, warm and dry Neurologic: no focal deficit, no asterixis Musculoskeletal: no erythema, no clubbing Psychiatric: cooperative, pressured speech - Lab 12/31/17 04:33 01/03/18 05:25 Most recent lab results Calcium 8.9 mg/dL (8.6-10.3) 01/02/18 07:34 Phosphorus 3.1 mg/dL (2.7-4.5) 01/02/18 07:34 Magnesium 2.0 mg/dL (1.6-2.6) 01/02/18 07:34 Urine Creatinine 83 mg/dL 12/30/17 11:24 Urine Sodium 63.7 mEq/L 06/09/18 18:36 Urine Total Protein 92 mg/dL (1-14) H 12/30/17 11:24 Consult Discharge Plan - Plan [facility]errals: [facility] [Primary Care Provider] -
--- NOTE | 2018-01-02 16:50 | Internal Med Progress Note ---
Date of Encounter: 01/02/18 Time of Encounter: 13:10 - Assessment and plan (1) Acute renal failure Current Visit: Yes Status: Acute Assessment and plan: Noted to have nonoliguric acute on chronic renal failure, unknown baseline serum creatinine. However, chronic kidney disease was documented in his past medical history from [place] records. Noted to be on diuretic as an outpatient, currently on hold. Continue IV hydration. Nephrology on board. Admitted with serum creatinine of 4.13, currently improving to 2.07. Elevated PTHi; Avoid nephrotoxins. Hepatitis serology negative. Appropriate urine output noted. Qualifiers: Acute renal failure type: unspecified Qualified Code(s): N17.9 - Acute kidney failure, unspecified (2) UTI (urinary tract infection) Current Visit: Yes Status: Acute Assessment and plan: Urinalysis suggestive of UTI. Urine culture noted to be grossly mixed and contaminated. Continue IV Rocephin for 5 days. Qualifiers: Urinary tract infection type: acute cystitis Hematuria presence: without hematuria Qualified Code(s): N30.00 - Acute cystitis without hematuria (3) Hx of congestive heart failure Current Visit: Yes Status: Chronic (4) Schizophrenia Current Visit: Yes Status: Chronic Qualifiers: Schizophrenia type: unspecified Qualified Code(s): F20.9 - Schizophrenia, unspecified (5) Tobacco abuse Current Visit: Yes Status: Chronic (6) DVT prophylaxis Current Visit: Yes Status: Acute (7) Right groin wound Current Visit: Yes Status: Acute Qualifiers: Encounter type: initial encounter Qualified Code(s): S31.109A - Unspecified open wound of abdominal wall, unspecified quadrant without penetration into peritoneal cavity, initial encounter (8) Bipolar disorder Current Visit: Yes Status: Chronic Qualifiers: Active/Remission status: remission status unspecified Qualified Code(s): F31.9 - Bipolar disorder, unspecified (9) Chronic kidney disease Current Visit: Yes Status: Chronic Qualifiers: Chronic kidney disease stage: stage 3 (moderate) Qualified Code(s): N18.3 - Chronic kidney disease, stage 3 (moderate) - Time Spent With Patient Total time spent is greater than 50% in coordination of care (as documented) at patient's floor/unit and/or counseling patient: - Subjective Interval history: Unable to provide history due to underlying schizophrenia and hallucinations. Reports having had a bowel movement yesterday. Improved abdominal discomfort. Continues to ramble on about irrelevant things. Also asked if "I could do his toenails" when I walked into the room! - Constitutional Vitals: Temp Pulse Resp BP Pulse Ox 98.5 F 80 20 156/84 93 01/02/18 16:10 01/02/18 16:10 01/02/18 16:10 01/02/18 16:25 01/02/18 16:10 General appearance: Present: A&O X 2, no acute distress. Absent: answers questions appropriately - Respiratory Respiratory exam: Present: CTAB. Absent: accessory muscle use, rales, rhonchi, wheezes - Cardiovascular Cardiovascular exam: Present: RRR, +S1, +S2. Absent: diastolic murmur, gallop, rubs, systolic murmur Internal Medicine: Result - Labs CBC & Chem 7: 12/31/17 04:33 01/02/18 07:34 Labs: BMP 01/02/18 07:34 Sodium 137 Potassium 4.7 Chloride 109 H Carbon Dioxide 20 L BUN 38 H Creatinine 2.07 H Glucose 134 H Calcium 8.9 Liver Function 01/02/18 Range/Units 07:34 Albumin 3.6 (3.5-5.7) g/dL Consult Discharge Plan - Plan [facility]errals: [facility] [Primary Care Provider] -
[2018-01-02] MEDS: cefTRIAXone 1,000 MG in Water for inj. (sterile) 20 ML 10 ML IVP SCH (18:30)
[2018-01-02] MEDS: Ipratropium/Albuterol Neb 3 ML IH PRN (21:52)
[2018-01-03 04:22] LABS: Alpha 2 Globulin (PEP) 0.88 g/dL (0.48-1.05); Beta Globulin (PEP) 0.82 g/dL (0.48-1.10)
[2018-01-03] MEDS: *HR* Heparin 5,000 UNIT/ML VIAL SQ SCH ×2 (04:55→17:43)
[2018-01-03] MEDS: 0.9 % Sodium Chloride 1,000 ML IVC SCH (04:57)
[2018-01-03 05:59] LABS: Magnesium 2.1 mg/dL (1.6-2.6); Potassium 4.5 mEq/L (3.5-5.1)
[2018-01-03 08:53] LABS: Myeloperoxidase Ab 0 AU/mL (0-19); Serine Protease-3 Antibody 1 AU/mL (0-19)
[2018-01-03 09:01] LABS: IFE Reflexed NOT DONE
[2018-01-03 09:17] LABS: Kappa Qnt Free Light Chains 5.74 mg/dL (0.33-1.94); Lambda Qnt Free Light Chains 5.04 mg/dL (0.57-2.63)
[2018-01-03] MEDS: Clotrimazole 1% CRM 15 GM TUBE TP SCH ×2 (10:10→21:45)
[2018-01-03] MEDS: Metoprolol XL (24 HR) Succ 25 MG TAB.ER.24H PO SCH (10:10)
[2018-01-03] MEDS: Nicotine 21 MG PATCH.TD24 TD SCH (10:10)
--- NOTE | 2018-01-03 10:46 | Nephrology Progress Note ---
Date of Encounter: 01/03/18 Time of Encounter: 10:00 - Assessment and Plan (1) Acute renal failure Current Visit: Yes Status: Acute Still no outside [facility] labs available to me. His SCr is fluctuating, but he has been on IVF for days and at this point the prerenal aspects would have been corrected, and I would recommend avoiding giving too much volume, so will stop the IVF. He has subnephrotic proteinuria and hematuria on admission. Negative hepatitis, WARREN, ANCA, normal complements. Pending SPEP and K/L FLC analysis. Suspect so far that he does not have a GN. Given his obvious Psych history, he may have been previously prescribed Barataria , which over a long goods drier exposure could pose a risk for CKD. No indication for a renal biopsy at this point, but if his renal were to worsen without explanation, then would recommend it. Cont to follow a renal protective and conservative strategy Thank you Qualifiers: Acute renal failure type: unspecified Qualified Code(s): N17.9 - Acute kidney failure, unspecified (2) UTI (urinary tract infection) Current Visit: Yes Status: Acute As per primary Qualifiers: Urinary tract infection type: acute cystitis Hematuria presence: without hematuria Qualified Code(s): N30.00 - Acute cystitis without hematuria (3) Proteinuria Current Visit: Yes Status: Acute See above Qualifiers: Proteinuria type: unspecified Qualified Code(s): R80.9 - Proteinuria, unspecified (4) Hematuria Current Visit: Yes Status: Acute See above Qualifiers: Hematuria type: unspecified type Qualified Code(s): R31.9 - Hematuria, unspecified (5) Vitamin D deficiency Current Visit: Yes Status: Acute Rec starting D3 five thousand units po daily. This will also help suppress iPTH and is affordable. (6) Secondary hyperparathyroidism (of renal origin) Current Visit: Yes Status: Acute See vit D comment above. Subjective Principal diagnosis: MENA Interval history: Pt was s/e with the RN at bedside. He was very hard to refocus in conversation with extreme pressured speech, thus limiting a complete subjective history. Objective - Vital Signs Vital signs: Vital Signs Temp Pulse Resp BP Pulse Ox 01/03/18 08:08 97.5 F L 85 20 128/79 91 01/03/18 04:03 97.9 F 79 17 141/82 90 01/02/18 23:37 98.3 F 83 18 149/78 91 01/02/18 21:52 18 93 01/02/18 20:30 98.1 F 79 18 169/90 92 01/02/18 16:25 156/84 01/02/18 16:10 98.5 F 80 20 154/106 93 01/02/18 11:47 97.8 F 72 18 142/89 94 Intake and Output 01/02/18 01/03/18 01/03/18 23:59 07:59 15:59 Intake Total 240 / 240 1010 / 1010 Output Total 3050 / 3050 750 / 750 Balance -2810 / -2810 260 / 260 Intake: IV Fluids 1010 / 1010 0.9 % Sodium Chloride 1,000 ML 1000 / 1000 @ 75 mls/hr IVC .[id number] [facility] Rx #:[id number] Rocephin 1,000 MG In Water for inj. (sterile) 10 ML @ 600 mls/ hr IVP QPM [facility]AY[facility] Rx#:[id number] Oral 240 / 240 Output: Catheter 3050 / 3050 750 / 750 Urethral (Aranda) 1250 / 1250 Other: Meal Dinner Percent of Meal Consumed 50% Weight 100.3 kg Patient Weight 01/03/18 23:59 Weight 100.3 kg - General Appearance Exam: General appearance: well-developed, well-nourished, appears started age EENT: ATNC, PERRL, mucous membranes moist Additional Comments: Very poor dentition. Neck: supple Respiratory: clear Cardiology: no edema, regular rate, regular rhythm, normal S1, normal S2 Gastrointestinal: normoactive bowel sounds, no tenderness, no guarding, obese Integumentary: no rash, warm and dry Neurologic: no focal deficit, no asterixis Musculoskeletal: no erythema, no clubbing Psychiatric: cooperative, pressured speech - Lab 12/31/17 04:33 01/03/18 05:25 Most recent lab results Calcium 9.0 mg/dL (8.6-10.3) 01/03/18 05:25 Phosphorus 3.1 mg/dL (2.7-4.5) 01/02/18 07:34 Magnesium 2.1 mg/dL (1.6-2.6) 01/03/18 05:25 Urine Creatinine 83 mg/dL 12/30/17 11:24 Urine Sodium 63.7 mEq/L 12/29/17 18:36 Urine Total Protein 92 mg/dL (1-14) H 12/30/17 11:24 Consult Discharge Plan - Plan Referrals: [facility],PCP [Primary Care Provider] -
--- NOTE | 2018-01-03 17:02 | Internal Med Progress Note ---
Date of Encounter: 01/03/18 Time of Encounter: 13:00 - Assessment and plan (1) Acute renal failure Current Visit: Yes Status: Acute Assessment and plan: Noted to have nonoliguric acute on chronic renal failure, unknown baseline serum creatinine. However, chronic kidney disease was documented in his past medical history from [place] records. Noted to be on diuretic as an outpatient, currently on hold. Hold IV hydration at this time and discontinue Aranda catheter. Nephrology on board. Admitted with serum creatinine of 4.13, currently improving, slightly worse from yesterday, probably at his baseline- 2.45; euvolemic. Avoid nephrotoxins. Hepatitis serology negative. Qualifiers: Acute renal failure type: unspecified Qualified Code(s): N17.9 - Acute kidney failure, unspecified (2) UTI (urinary tract infection) Current Visit: Yes Status: Acute Assessment and plan: Urinalysis suggestive of UTI. Urine culture noted to be grossly mixed and contaminated. DisContinue IV Rocephin, completed for 5 days. Qualifiers: Urinary tract infection type: acute cystitis Hematuria presence: without hematuria Qualified Code(s): N30.00 - Acute cystitis without hematuria (3) Hx of congestive heart failure Current Visit: Yes Status: Chronic Assessment and plan: Noted to be on beta scott and diuretic as an outpatient. Hold Lasix for now. (4) Schizophrenia Current Visit: Yes Status: Chronic Assessment and plan: Continue closely monitor patient and continue intramuscular haldol after discharge. Qualifiers: Schizophrenia type: unspecified Qualified Code(s): F20.9 - Schizophrenia, unspecified (5) Tobacco abuse Current Visit: Yes Status: Chronic Assessment and plan: Continue nicotine patch. (6) DVT prophylaxis Current Visit: Yes Status: Acute (7) Right groin wound Current Visit: Yes Status: Acute Qualifiers: Encounter type: initial encounter Qualified Code(s): S31.109A - Unspecified open wound of abdominal wall, unspecified quadrant without penetration into peritoneal cavity, initial encounter (8) Bipolar disorder Current Visit: Yes Status: Chronic Qualifiers: Active/Remission status: remission status unspecified Qualified Code(s): F31.9 - Bipolar disorder, unspecified (9) Chronic kidney disease Current Visit: Yes Status: Chronic Qualifiers: Chronic kidney disease stage: stage 3 (moderate) Qualified Code(s): N18.3 - Chronic kidney disease, stage 3 (moderate) - Time Spent With Patient Total time spent is greater than 50% in coordination of care (as documented) at patient's floor/unit and/or counseling patient: - Subjective Interval history: Unable to provide history due to underlying schizophrenia and hallucinations. Denies new complaints. Continues to ramble on about irrelevant things. - Constitutional Vitals: Temp Pulse Resp BP Pulse Ox 98.7 F 78 18 167/91 94 01/03/18 16:31 01/03/18 16:31 01/03/18 16:31 01/03/18 16:31 01/03/18 16:31 General appearance: Present: A&O X 2, no acute distress. Absent: answers questions appropriately - Respiratory Respiratory exam: Present: CTAB. Absent: accessory muscle use, rales, rhonchi, wheezes - Cardiovascular Cardiovascular exam: Present: RRR, +S1, +S2. Absent: diastolic murmur, gallop, rubs, systolic murmur - GI/Abdominal GI/Abdominal exam: Present: normal bowel sounds, soft, no peritoneal signs. Absent: distended, tenderness - Extremities Exam Extremities exam: Present: full ROM, warm, radial pulses palpable and symmetrical. Absent: calf tenderness, cyanotic, pedal edema Internal Medicine: Result - Labs CBC & Chem 7: 12/31/17 04:33 01/03/18 05:25 Labs: BMP 01/03/18 05:25 Sodium 137 Potassium 4.5 Chloride 110 H Carbon Dioxide 20 L BUN 40 H Creatinine 2.45 H Glucose 141 H Calcium 9.0 Consult Discharge Plan - Plan [facility]errals: [facility] [Primary Care Provider] -
[2018-01-03] MEDS: cefTRIAXone 1,000 MG in Water for inj. (sterile) 20 ML 10 ML IVP SCH (17:43)
[2018-01-04 06:11] LABS: Calcium 9.5 mg/dL (8.6-10.3); Magnesium 2.1 mg/dL (1.6-2.6); Potassium 4.5 mEq/L (3.5-5.1)
[2018-01-04] MEDS: *HR* Heparin 5,000 UNIT/ML VIAL SQ SCH ×2 (06:39→17:35)
[2018-01-04] MEDS: Clotrimazole 1% CRM 15 GM TUBE TP SCH ×2 (09:53→21:53)
[2018-01-04] MEDS: Metoprolol XL (24 HR) Succ 25 MG TAB.ER.24H PO SCH (09:53)
[2018-01-04] MEDS: Nicotine 21 MG PATCH.TD24 TD SCH (09:53)
--- NOTE | 2018-01-04 14:20 | Discharge Summary ---
- NOTES TO OUTPATIENT PROVIDER Notes to Outpatient Provider: MENA on CKD, improved Orders not resulted at time of discharge: Pending orders 12/31/17 04:33 WARREN Titer by IFA Routine [place] Lambda Qnt FLC w Ratio AM 0400 MPO/PR3 (ANCA) Antibodies Routine Date of Encounter: 01/04/18 Time of Encounter: 14:18 - Discharge Diagnosis (1) Acute renal failure Priority: Primary Status: Acute Qualifiers: Acute renal failure type: unspecified Qualified Code(s): N17.9 - Acute kidney failure, unspecified (2) UTI (urinary tract infection) Priority: Primary Status: Acute Qualifiers: Urinary tract infection type: acute cystitis Hematuria presence: without hematuria Qualified Code(s): N30.00 - Acute cystitis without hematuria (3) Hx of congestive heart failure Priority: Secondary Status: Chronic (4) Schizophrenia Priority: Secondary Status: Chronic Qualifiers: Schizophrenia type: unspecified Qualified Code(s): F20.9 - Schizophrenia, unspecified (5) Tobacco abuse Priority: Secondary Status: Chronic (6) Right groin wound Priority: Primary Status: Chronic Qualifiers: Encounter type: initial encounter Qualified Code(s): S31.109A - Unspecified open wound of abdominal wall, unspecified quadrant without penetration into peritoneal cavity, initial encounter (7) Bipolar disorder Priority: Secondary Status: Chronic Qualifiers: Active/Remission status: remission status unspecified Qualified Code(s): F31.9 - Bipolar disorder, unspecified (8) Chronic kidney disease Priority: Secondary Status: Chronic Qualifiers: Chronic kidney disease stage: stage 3 (moderate) Qualified Code(s): N18.3 - Chronic kidney disease, stage 3 (moderate) Hospital course: Mr. Mendiola is a 67 year old male with significant psychiatric history, was sent from [place] ER with fall and noted to have acute renal failure. No previous labs when available but his serum creatinine was noted to be 4.03 in the emergency room. Patient is from [place] home and his medication list was notable for a diuretic, which has been held. Patient was given IV hydration, Aranda catheter was placed and urine output monitoring. He serum creatinine gradually improved to around 2.5 and he is noted to have excellent urine output. Chronic kidney disease has been documented in his past medical history and this creatinine is probably his baseline. Nephrology was consulted and followed the patient during this admission. He is recommended to follow up with nephrology as outpatient. He received a five-day course of IV Rocephin for suspected UTI, however urine culture was grossly mixed, unable to interpret. He is currently medically stable for discharge back to his [facility]. Patient is not oriented to place and time and he cannot answer appropriately, he has significant delusions and hallucinations. Discharge discussed with: nurse, case management, retail client solutions consultant - Time Spent with Patient Total time spent providing and/or coordinating discharge services: Greater than 30 minutes (40 min) - Discharge Medications Home Medications: Aspirin [Lo-Dose Aspirin EC] 81 mg PO DAILY 12/30/17 [History] Cholecalciferol (D-3) [Vitamin D] 1,000 unit PO DAILY 12/30/17 [History] Metoprolol Succinate [Toprol Xl] 25 mg PO DAILY 12/30/17 [History] Quetiapine Fumarate [Seroquel] 200 mg PO QAM 12/30/17 [History] Quetiapine Fumarate [Seroquel] 400 mg PO QPM 12/30/17 [History] Terazosin HCl 2 mg PO HS 12/30/17 [History] Allergies/Adverse Reactions: 3 Allergy/AdvReac Type Severity Reaction Status Date / Time haloperidol [From Haldol] AdvReac Intermediate Agitated Verified 12/31/17 13:54 Date of admission: 12/29/17 21:21 Primary care physician: PCP [facility] Consults: 12/30/17 07:46 Consult to Wound Care [CONS] Routine Reason for Consult: Please see nurse note. Wounds to groin, right side worse than left and wounds surrounding anus. Time Notified: 07:47 Call Completed: Yes Discharging clinician: Hayley Jama Anticipated date of discharge: 01/04/18 - Constitutional Vitals: Temp Pulse Resp BP Pulse Ox 98.3 F 89 15 155/91 95 01/04/18 11:24 01/04/18 11:24 01/04/18 11:24 01/04/18 11:24 01/04/18 11:24 General appearance: Present: A&O X 2, no acute distress. Absent: answers questions appropriately - Cardiovascular Cardiovascular exam: Present: RRR, +S1, +S2. Absent: diastolic murmur, gallop, rubs, systolic murmur - Patient Status Disposition: Transfer Other Condition: Fair Functional capacity at discharge: uses cane/walker Overall status at discharge: patient is progressing back to baseline - Discharge Instructions Follow [facility] With: [facility] [Primary Care Provider[facility] - Additional Instructions: F/up with PCP in 1-2 weeks F/up with Nephrology in 3-4 weeks BMP 1 week prior to Nephrology appt - Diet and Activity Activity: resume usual activities as tolerated Diet: low fat, low cholesterol, low salt diet
--- NOTE | 2018-01-04 14:49 | Nephrology Progress Note ---
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 Continue to avoid nephrotoxins if possible UOP great at 2800cc in the past 24hrs If discharged, can followup within 4 weeks at our office with BMP in a week (2) Chronic kidney disease Current Visit: Yes Status: Chronic Suspect baseline if stage 4 CKD but cannot prove without old labs Qualifiers: Chronic kidney disease stage: stage 3 (moderate) Qualified Code(s): N18.3 - Chronic kidney disease, stage 3 (moderate) (3) UTI (urinary tract infection) Current Visit: Yes Status: Acute Per primary team Qualifiers: Urinary tract infection type: acute cystitis Hematuria presence: without hematuria Qualified Code(s): N30.00 - Acute cystitis without hematuria Subjective Principal diagnosis: MENA Interval history: Interim events noted, pt seen and examined without any complaints but rambling about the "mob and prostitutes". Appears in good mood. Objective - Vital Signs Vital signs: Vital Signs Temp Pulse Resp BP Pulse Ox 01/04/18 11:24 98.3 F 89 15 155/91 95 01/04/18 09:50 96 01/04/18 07:01 98.5 F 74 16 135/65 96 01/04/18 04:23 98.3 F 83 18 147/87 93 01/03/18 23:09 97.6 F 101 18 158/90 90 01/03/18 16:31 98.7 F 78 18 167/91 94 Intake and Output 01/03/18 01/04/18 01/04/18 23:59 07:59 15:59 Intake Total 480 / 480 720 / 720 Output Total 0 / 0 Balance 480 / 480 720 / 720 Intake: Oral 480 / 480 720 / 720 Output: Urine 0 / 0 Other: Meal Dinner Lunch Percent of Meal Consumed 100% 100% Stool Size Moderate Smear Stool Consistency formed formed Stool Characteristics Normal for Patient Stool Color Brown Brown # Voids 1 2 # Urine Diapers 2 1 # Bowel Movement Diapers 1 Weight 98.7 kg Patient Weight 01/04/18 23:59 Weight 98.7 kg - General Appearance General appearance: Present: well-developed, well-nourished EENT: Present: ATNC, mucous membranes moist Neck: Present: no JVD, supple Respiratory: Present: clear Cardiology: Present: no edema, normal S1, normal S2 Gastrointestinal: Present: no tenderness, no guarding Integumentary: Present: warm and dry Neurologic: Present: no focal deficit Musculoskeletal: Present: no deformities Psychiatric: Present: mood/affect appropriate, cooperative - Lab 12/31/17 04:33 01/04/18 05:09 Most recent lab results Calcium 9.5 mg/dL (8.6-10.3) 01/04/18 05:09 Phosphorus 3.1 mg/dL (2.7-4.5) 01/02/18 07:34 Magnesium 2.1 mg/dL (1.6-2.6) 01/04/18 05:09 Urine Creatinine 83 mg/dL 12/30/17 11:24 Urine Sodium 63.7 mEq/L 12/29/17 18:36 Urine Total Protein 92 mg/dL (1-14) H 12/30/17 11:24 Consult Discharge Plan - Plan Additional Instructions: F/up with PCP in 1-2 weeks F/up with Nephrology in 3-4 weeks BMP 1 week prior to Nephrology appt [facility]errals: [facility] [Primary Care Provider] -
[2018-01-05] MEDS: *HR* Heparin 5,000 UNIT/ML VIAL SQ SCH ×2 (06:09→17:31)
[2018-01-05] MEDS: Nicotine 21 MG PATCH.TD24 TD SCH (09:42)
[2018-01-05] MEDS: Clotrimazole 1% CRM 15 GM TUBE TP SCH ×2 (09:43→23:23)
[2018-01-05] MEDS: Metoprolol XL (24 HR) Succ 25 MG TAB.ER.24H PO SCH (09:43)
[2018-01-05] MEDS: Ipratropium/Albuterol Neb 3 ML IH PRN (09:55)
--- NOTE | 2018-01-05 16:55 | Internal Med Progress Note ---
Date of Encounter: 01/05/18 Time of Encounter: 11:30 - Assessment and plan (1) Acute renal failure Current Visit: Yes Status: Acute Assessment and plan: Noted to have nonoliguric acute on chronic renal failure, unknown baseline serum creatinine, but probably around 2.5; Chronic kidney disease was documented in his past medical history from [place] records. Noted to be on diuretic as an outpatient, currently on hold. Nephrology was consulted and currently signed off, stable for discharge with outpatient nephrology follow-up. Patient's discharge was held yesterday as his [facility] refuses to accept him back. equipment services associate consult. Aranda catheter was replaced early this morning due to significant urinary incontinence and presence of severe perineal and inguinal wounds. Qualifiers: Acute renal failure type: unspecified Qualified Code(s): N17.9 - Acute kidney failure, unspecified (2) UTI (urinary tract infection) Current Visit: Yes Status: Acute Assessment and plan: Urinalysis suggestive of UTI. Urine culture noted to be grossly mixed and contaminated. Completed a 5 day course of IV Rocephin. Qualifiers: Urinary tract infection type: acute cystitis Hematuria presence: without hematuria Qualified Code(s): N30.00 - Acute cystitis without hematuria (3) Hx of congestive heart failure Current Visit: Yes Status: Chronic (4) Schizophrenia Current Visit: Yes Status: Chronic Assessment and plan: Continue to closely monitor patient and continue home meds; Qualifiers: Schizophrenia type: unspecified Qualified Code(s): F20.9 - Schizophrenia, unspecified (5) Tobacco abuse Current Visit: Yes Status: Chronic (6) Right groin wound Current Visit: Yes Status: Chronic Qualifiers: Encounter type: initial encounter Qualified Code(s): S31.109A - Unspecified open wound of abdominal wall, unspecified quadrant without penetration into peritoneal cavity, initial encounter (7) Bipolar disorder Current Visit: Yes Status: Chronic Qualifiers: Active/Remission status: remission status unspecified Qualified Code(s): F31.9 - Bipolar disorder, unspecified (8) Chronic kidney disease Current Visit: Yes Status: Chronic Qualifiers: Chronic kidney disease stage: stage 3 (moderate) Qualified Code(s): N18.3 - Chronic kidney disease, stage 3 (moderate) - Time Spent With Patient Total time spent is greater than 50% in coordination of care (as documented) at patient's floor/unit and/or counseling patient: - Subjective Interval history: Unable to provide history due to underlying schizophrenia and hallucinations. Denies new complaints. Continues to ramble on about irrelevant things. - Constitutional Vitals: Temp Pulse Resp BP Pulse Ox 97.6 F 92 16 125/84 92 01/05/18 12:30 01/05/18 12:30 01/05/18 12:30 01/05/18 12:30 01/05/18 12:30 General appearance: Present: A&O X 2, no acute distress. Absent: answers questions appropriately - Cardiovascular Cardiovascular exam: Present: RRR, +S1, +S2. Absent: diastolic murmur, gallop, rubs, systolic murmur Internal Medicine: Result - Labs CBC & Chem 7: 12/31/17 04:33 01/06/18 05:44 Consult Discharge Plan - Plan Additional Instructions: F/up with PCP in 1-2 weeks F/up with Nephrology in 3-4 weeks BMP 1 week prior to Nephrology appt [facility]errals: [facility] [Primary Care Provider] -
[2018-01-06] MEDS: *HR* Heparin 5,000 UNIT/ML VIAL SQ SCH ×2 (05:25→16:32)
[2018-01-06 06:54] LABS: Calcium 9.5 mg/dL (8.6-10.3); Potassium 4.5 mEq/L (3.5-5.1)
[2018-01-06] MEDS: Clotrimazole 1% CRM 15 GM TUBE TP SCH ×2 (08:38→20:07)
[2018-01-06] MEDS: Metoprolol XL (24 HR) Succ 25 MG TAB.ER.24H PO SCH (08:38)
[2018-01-06] MEDS: Nicotine 21 MG PATCH.TD24 TD SCH (08:38)
[2018-01-06] MEDS: Ipratropium/Albuterol Neb 3 ML IH PRN ×2 (10:07→17:30)
[2018-01-06] MEDS: amLODIPine 5 MG TABLET PO SCH (11:54)
--- NOTE | 2018-01-06 13:00 | Nephrology Progress Note ---
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 Continue to avoid nephrotoxins if possible UOP great at 2000cc in the past 24hrs If discharged, can followup within 4 weeks at our office with BMP in a week (2) Chronic kidney disease Current Visit: Yes Status: Chronic Suspect baseline if stage 4 CKD but cannot prove without old labs Qualifiers: Chronic kidney disease stage: stage 3 (moderate) Qualified Code(s): N18.3 - Chronic kidney disease, stage 3 (moderate) (3) UTI (urinary tract infection) Current Visit: Yes Status: Acute Per primary team Qualifiers: Urinary tract infection type: acute cystitis Hematuria presence: without hematuria Qualified Code(s): N30.00 - Acute cystitis without hematuria Subjective Principal diagnosis: MENA Interval history: Pt seen and examined resting comfortably but arousable Objective - Vital Signs Vital signs: Vital Signs Temp Pulse Resp BP Pulse Ox 01/06/18 11:50 98.1 F 95 19 148/82 92 01/06/18 10:07 20 94 01/06/18 08:54 94 01/06/18 07:36 97.7 F 80 19 161/82 94 01/06/18 04:49 97.7 F 79 20 127/82 90 01/05/18 23:20 98.6 F 86 20 144/86 95 01/05/18 19:18 98.9 F 90 18 137/78 92 Intake and Output 01/05/18 01/06/18 01/06/18 23:59 07:59 15:59 Intake Total 480 / 480 240 / 240 240 / 240 Output Total 950 / 950 750 / 750 500 / 500 Balance -470 / -470 -510 / -510 -260 / -260 Intake: Oral 480 / 480 240 / 240 240 / 240 Output: Urine 350 / 350 0 / 0 Catheter 600 / 600 750 / 750 500 / 500 Other: Meal Breakfast Percent of Meal Consumed 70% Weight 98.2 kg Patient Weight 01/06/18 23:59 Weight 98.2 kg - General Appearance General appearance: Present: chronically ill (NAD) EENT: Present: ATNC, mucous membranes moist Neck: Present: no JVD, supple Respiratory: Present: clear Cardiology: Present: no edema, normal S1, normal S2 Gastrointestinal: Present: no tenderness, no guarding Integumentary: Present: warm and dry Neurologic: Present: no focal deficit Musculoskeletal: Present: no deformities Psychiatric: Present: mood/affect appropriate, cooperative - Lab 12/31/17 04:33 01/06/18 05:44 Most recent lab results Calcium 9.5 mg/dL (8.6-10.3) 01/06/18 05:44 Phosphorus 3.1 mg/dL (2.7-4.5) 01/02/18 07:34 Magnesium 2.1 mg/dL (1.6-2.6) 01/04/18 05:09 Urine Creatinine 83 mg/dL 12/30/17 11:24 Urine Sodium 63.7 mEq/L 12/29/17 18:36 Urine Total Protein 92 mg/dL (1-14) H 12/30/17 11:24 Consult Discharge Plan - Plan Additional Instructions: F/up with PCP in 1-2 weeks F/up with Nephrology in 3-4 weeks BMP 1 week prior to Nephrology appt [facility]errals: [facility] [Primary Care Provider] -
--- NOTE | 2018-01-06 14:37 | Internal Med Progress Note ---
Date of Encounter: 01/06/18 Time of Encounter: 13:20 - Assessment and plan (1) Acute renal failure Current Visit: Yes Status: Acute Assessment and plan: Noted to have nonoliguric acute on chronic renal failure, unknown baseline serum creatinine, but probably around 2.5; Chronic kidney disease was documented in his past medical history from [place] records. Noted to be on diuretic as an outpatient, currently on hold. Serum creatinine slightly worse today at 2.74; Nephrology on board, stable for discharge with outpatient nephrology follow-up. Patient's discharge was held as his snf refuses to accept him back. legal services professional consult. Aranda catheter was replaced early this morning due to significant urinary incontinence and presence of severe perineal and inguinal wounds. Qualifiers: Acute renal failure type: unspecified Qualified Code(s): N17.9 - Acute kidney failure, unspecified (2) UTI (urinary tract infection) Current Visit: Yes Status: Resolved Qualifiers: Urinary tract infection type: acute cystitis Hematuria presence: without hematuria Qualified Code(s): N30.00 - Acute cystitis without hematuria (3) Hx of congestive heart failure Current Visit: Yes Status: Chronic (4) Schizophrenia Current Visit: Yes Status: Chronic Qualifiers: Schizophrenia type: unspecified Qualified Code(s): F20.9 - Schizophrenia, unspecified (5) Tobacco abuse Current Visit: Yes Status: Chronic (6) Right groin wound Current Visit: Yes Status: Chronic Qualifiers: Encounter type: initial encounter Qualified Code(s): S31.109A - Unspecified open wound of abdominal wall, unspecified quadrant without penetration into peritoneal cavity, initial encounter (7) Bipolar disorder Current Visit: Yes Status: Chronic Qualifiers: Active/Remission status: remission status unspecified Qualified Code(s): F31.9 - Bipolar disorder, unspecified (8) Chronic kidney disease Current Visit: Yes Status: Chronic Qualifiers: Chronic kidney disease stage: stage 3 (moderate) Qualified Code(s): N18.3 - Chronic kidney disease, stage 3 (moderate) (9) Essential hypertension Current Visit: Yes Status: Chronic Assessment and plan: BP noted to be elevated; will add Norvasc and continue beta scott; monitor BP closely; - Time Spent With Patient Total time spent is greater than 50% in coordination of care (as documented) at patient's floor/unit and/or counseling patient: - Subjective Interval history: Unable to provide history due to underlying schizophrenia and hallucinations. Denies new complaints. Continues to ramble on about irrelevant things. He constantly talks about how alf people cheated him and took away all his money; - Constitutional Vitals: Temp Pulse Resp BP Pulse Ox 98.1 F 95 19 148/82 92 01/06/18 11:50 01/06/18 11:50 01/06/18 11:50 01/06/18 11:50 01/06/18 11:50 General appearance: Present: A&O X 2, no acute distress. Absent: answers questions appropriately - Cardiovascular Cardiovascular exam: Present: RRR, +S1, +S2. Absent: diastolic murmur, gallop, rubs, systolic murmur Internal Medicine: Result - Labs CBC & Chem 7: 12/31/17 04:33 01/06/18 05:44 Labs: [facility] 01/06/18 05:44 Sodium 136 Potassium 4.5 Chloride 107 Carbon Dioxide 23 BUN 52 H Creatinine 2.74 H Glucose 146 H Calcium 9.5 Consult Discharge Plan - Plan Additional Instructions: F/up with PCP in 1-2 weeks F/up with Nephrology in 3-4 weeks BMP 1 week prior to Nephrology appt [facility]: [facility] [[facility] Care Provider[facility] -
[2018-01-07] MEDS: Ipratropium/Albuterol Neb 3 ML IH PRN (04:22)
[2018-01-07] MEDS: *HR* Heparin 5,000 UNIT/ML VIAL SQ SCH ×2 (05:36→17:23)
[2018-01-07 05:39] LABS: Calcium 9.5 mg/dL (8.6-10.3); Potassium 4.6 mEq/L (3.5-5.1)
[2018-01-07 08:05] LABS: ANA Titer by IFA <1:80 (<1:80)
[2018-01-07] MEDS: amLODIPine 5 MG TABLET PO SCH (08:47)
[2018-01-07] MEDS: Metoprolol XL (24 HR) Succ 25 MG TAB.ER.24H PO SCH (08:48)
[2018-01-07] MEDS: Nicotine 21 MG PATCH.TD24 TD SCH (08:48)
[2018-01-07] MEDS: Clotrimazole 1% CRM 15 GM TUBE TP SCH ×2 (08:49→20:43)
[2018-01-07] MEDS: Aspirin Enteric Coated 81 MG Tablet PO SCH (12:50)
--- NOTE | 2018-01-07 16:08 | Internal Med Progress Note ---
Date of Encounter: 01/07/18 Time of Encounter: 11:55 - Assessment and plan (1) Acute renal failure Current Visit: Yes Status: Acute Assessment and plan: Noted to have nonoliguric acute on chronic renal failure, unknown baseline serum creatinine, but probably around 2.5; Chronic kidney disease was documented in his past medical history from [place] records. Noted to be on diuretic as an outpatient, currently on hold. Serum creatinine slightly worse today at 3.02; Nephrology on board, stable for discharge with outpatient nephrology follow-up. Patient's discharge was held as his [facility] refuses to [facility] back. director of ancillary services consult. Aranda catheter was replaced early this morning due to significant urinary incontinence and presence of severe perineal and inguinal wounds. Qualifiers: Acute renal failure type: unspecified Qualified Code(s): N17.9 - Acute kidney failure, unspecified (2) UTI (urinary tract infection) Current Visit: Yes Status: Resolved Qualifiers: Urinary tract infection type: acute cystitis Hematuria presence: without hematuria Qualified Code(s): N30.00 - Acute cystitis without hematuria (3) Hx of congestive heart failure Current Visit: Yes Status: Chronic (4) Schizophrenia Current Visit: Yes Status: Chronic Qualifiers: Schizophrenia type: unspecified Qualified Code(s): F20.9 - Schizophrenia, unspecified (5) Tobacco abuse Current Visit: Yes Status: Chronic (6) Right groin wound Current Visit: Yes Status: Chronic Qualifiers: Encounter type: initial encounter Qualified Code(s): S31.109A - Unspecified open wound of abdominal wall, unspecified quadrant without penetration into peritoneal cavity, initial encounter (7) Bipolar disorder Current Visit: Yes Status: Chronic Qualifiers: Active/Remission status: remission status unspecified Qualified Code(s): F31.9 - Bipolar disorder, unspecified (8) Chronic kidney disease Current Visit: Yes Status: Chronic Qualifiers: Chronic kidney disease stage: stage 3 (moderate) Qualified Code(s): N18.3 - Chronic kidney disease, stage 3 (moderate) (9) Essential hypertension Current Visit: Yes Status: Chronic Assessment and plan: BP noted to be elevated; continue Norvasc and continue beta scott; monitor BP closely; - Time Spent With Patient Total time spent is greater than 50% in coordination of care (as documented) at patient's floor/unit and/or counseling patient: - Subjective Interval history: Unable to provide history due to underlying schizophrenia and hallucinations. Denies new complaints. Continues to ramble on about irrelevant things. Also reports seeing things and hearing voices, but when I ask is he doing this? he reports "No I'm just watching TV". He constantly talks about how residential people cheated him and took away all his money; - Constitutional Vitals: Temp Pulse Resp BP Pulse Ox 97.4 F L 85 19 142/88 90 01/07/18 11:27 01/07/18 11:27 01/07/18 11:27 01/07/18 11:27 01/07/18 11:27 General appearance: Present: A&O X 2, no acute distress. Absent: answers questions appropriately - Respiratory Respiratory exam: Present: CTAB. Absent: accessory muscle use, rales, rhonchi, wheezes - Cardiovascular Cardiovascular exam: Present: RRR, +S1, +S2. Absent: diastolic murmur, gallop, rubs, systolic murmur Internal Medicine: Result - Labs CBC & Chem 7: 12/31/17 04:33 01/07/18 05:06 Labs: [facility] 01/07/18 05:06 Sodium 135 L Potassium 4.6 Chloride 105 Carbon Dioxide 22 L BUN 60 H Creatinine 3.02 H Glucose 154 H Calcium 9.5 Consult Discharge Plan - Plan Additional Instructions: F/up with PCP in 1-2 weeks F/up with Nephrology in 3-4 weeks BMP 1 week prior to Nephrology appt Referrals: Kera Collins MD [Partnered Physician] - (waiting for the appt..) [place],PCP [Primary Care Provider] -
--- NOTE | 2018-01-07 17:55 | Nephrology Progress Note ---
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 Continue to avoid nephrotoxins if possible UOP great at 2000cc in the past 24hrs If discharged, can followup within 4 weeks at our office with BMP in a week (2) Chronic kidney disease Current Visit: Yes Status: Chronic Suspect baseline if stage 4 CKD but cannot prove without old labs Qualifiers: Chronic kidney disease stage: stage 3 (moderate) Qualified Code(s): N18.3 - Chronic kidney disease, stage 3 (moderate) (3) UTI (urinary tract infection) Current Visit: Yes Status: Resolved Per primary team Qualifiers: Urinary tract infection type: acute cystitis Hematuria presence: without hematuria Qualified Code(s): N30.00 - Acute cystitis without hematuria Subjective Principal diagnosis: MENA Interval history: Pt seen and examined resting comfortably but arousable Objective - Vital Signs Vital signs: Vital Signs Temp Pulse Resp BP Pulse Ox 01/07/18 16:36 97.6 F 91 19 111/75 92 01/07/18 11:27 97.4 F L 85 19 142/88 90 01/07/18 07:55 97.7 F 90 18 131/84 90 01/07/18 04:42 97.6 F 84 16 144/83 91 01/07/18 04:23 18 92 01/07/18 00:13 97.6 F 82 17 135/81 90 01/06/18 19:35 97.7 F 91 16 144/85 91 Intake and Output 01/07/18 01/07/18 01/07/18 07:59 15:59 23:59 Intake Total 480 / 480 480 / 480 Output Total 625 / 625 900 / 900 Balance -625 / -625 -420 / -420 480 / 480 Intake: Oral 480 / 480 480 / 480 Output: Urine 575 / 575 Catheter 50 / 50 900 / 900 Other: Meal Breakfast Percent of Meal Consumed 100% Weight 98.5 kg Patient Weight 01/07/18 23:59 Weight 98.5 kg - Lab 12/31/17 04:33 01/07/18 05:06 Most recent lab results Calcium 9.5 mg/dL (8.6-10.3) 01/07/18 05:06 Phosphorus 3.1 mg/dL (2.7-4.5) 01/02/18 07:34 Magnesium 2.1 mg/dL (1.6-2.6) 01/04/18 05:09 Urine Creatinine 83 mg/dL 12/30/17 11:24 Urine Sodium 63.7 mEq/L 12/29/17 18:36 Urine Total Protein 92 mg/dL (1-14) H 12/30/17 11:24 Consult Discharge Plan - Plan Additional Instructions: F/up with PCP in 1-2 weeks F/up with Nephrology in 3-4 weeks BMP 1 week prior to Nephrology appt Referrals: Kera Collins MD [Partnered Physician] - (waiting for the appt..) [facility] [Primary Care Provider[facility] -
[2018-01-08] MEDS: *HR* Heparin 5,000 UNIT/ML VIAL SQ SCH ×2 (05:52→17:38)
[2018-01-08 06:12] LABS: Calcium 8.6 mg/dL (8.6-10.3); Potassium 4.6 mEq/L (3.5-5.1)
--- NOTE | 2018-01-08 08:34 | Internal Med Progress Note ---
Date of Encounter: 01/08/18 Time of Encounter: 08:30 - Assessment and plan (1) Acute renal failure Current Visit: Yes Status: Acute Assessment and plan: Noted to have nonoliguric acute on chronic renal failure, unknown baseline serum creatinine, but probably around 2.5; Chronic kidney disease was documented in his past medical history from [place] records. Noted to be on diuretic as an outpatient, currently on hold. Serum creatinine slightly worse today at 3.12; Nephrology on board, agree with IV fluids. 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 Qualifiers: Acute renal failure type: unspecified Qualified Code(s): N17.9 - Acute kidney failure, unspecified (2) Chronic kidney disease Current Visit: Yes Status: Chronic Assessment and plan: Suspect baseline is stage 4 cKD per renal. Qualifiers: Chronic kidney disease stage: stage 4 (severe) Qualified Code(s): N18.4 - Chronic kidney disease, stage 4 (severe) (3) UTI (urinary tract infection) Current Visit: Yes Status: Resolved Assessment and plan: Urinalysis suggestive of UTI. Urine culture noted to be grossly mixed and contaminated. Completed a 5 day course of IV Rocephin. Qualifiers: Urinary tract infection type: acute cystitis Hematuria presence: without hematuria Qualified Code(s): N30.00 - Acute cystitis without hematuria (4) Hx of congestive heart failure Current Visit: Yes Status: Chronic Assessment and plan: Noted to be on beta scott and diuretic as an outpatient. Hold Lasix for now. (5) Schizophrenia Current Visit: Yes Status: Chronic Assessment and plan: Continue to closely monitor patient and continue home meds; Qualifiers: Schizophrenia type: unspecified Qualified Code(s): F20.9 - Schizophrenia, unspecified (6) Tobacco abuse Current Visit: Yes Status: Chronic Assessment and plan: Continue nicotine patch. (7) Right groin wound Current Visit: Yes Status: Chronic Assessment and plan: Likely fungal due to moisture. continue clotrimazole cream , wound care recs appreciated Qualifiers: Encounter type: initial encounter Qualified Code(s): S31.109A - Unspecified open wound of abdominal wall, unspecified quadrant without penetration into peritoneal cavity, initial encounter (8) Bipolar disorder Current Visit: Yes Status: Chronic Qualifiers: Active/Remission status: remission status unspecified Qualified Code(s): F31.9 - Bipolar disorder, unspecified (9) Essential hypertension Current Visit: Yes Status: Chronic Assessment and plan: BP noted to be elevated; continue Norvasc and continue beta scott; monitor BP closely; - Time Spent With Patient Total time spent is greater than 50% in coordination of care (as documented) at patient's floor/unit and/or counseling patient: - Subjective Interval history: No acute events overnight - Constitutional Vitals: Temp Pulse Resp BP Pulse Ox 97.7 F 82 18 108/72 95 01/08/18 08:10 01/08/18 08:10 01/08/18 08:10 01/08/18 08:10 01/08/18 08:10 General appearance: Present: A&O X 2, no acute distress. Absent: answers questions appropriately - Head Head exam: Present: atraumatic, normocephalic - Eye Eye exam: Present: PERRL, conjuntiva pink, sclera anicteric Pupils: Present: PERRL - Neck Neck exam general surgery: Present: supple, trachea midline. Absent: lymphadenopathy - Respiratory Respiratory exam: Present: CTAB. Absent: accessory muscle use, rales, rhonchi, wheezes - Cardiovascular Cardiovascular exam: Present: RRR, +S1, +S2. Absent: diastolic murmur, gallop, rubs, systolic murmur - GI/Abdominal GI/Abdominal exam: Present: normal bowel sounds, soft, no peritoneal signs. Absent: distended, tenderness - Extremities Exam Extremities exam: Present: warm, radial pulses palpable and symmetrical. Absent : calf tenderness, cyanotic, pedal edema - Neurological Exam Neurological exam: Present: CN II-XII intact, oriented X3, no focal deficits. Absent: pronater drift, facial droop, speech deficit - Skin Skin exam: Present: dry, intact Internal Medicine: Result - Labs CBC & Chem 7: 12/31/17 04:33 01/08/18 05:00 Labs: [facility] 01/08/18 05:00 Sodium 132 L Potassium 4.6 Chloride 106 Carbon Dioxide 18 L BUN 64 H Creatinine 3.12 H Glucose 146 H Calcium 8.6 Consult Discharge Plan - Plan Additional Instructions: F/up with PCP in 1-2 weeks F/up with Nephrology in 3-4 weeks BMP 1 week prior to Nephrology appt Referrals: Orimilikwe,Njideka Kiera, MD [Partnered Physician] - (waiting for the appt..) [facility] [Primary Care Provider] -
[2018-01-08] MEDS: Metoprolol XL (24 HR) Succ 25 MG TAB.ER.24H PO SCH (09:33)
[2018-01-08] MEDS: Nicotine 21 MG PATCH.TD24 TD SCH (09:34)
[2018-01-08] MEDS: amLODIPine 5 MG TABLET PO SCH (09:34)
[2018-01-08] MEDS: 0.9 % Sodium Chloride 1,000 ML IVC SCH (09:35)
[2018-01-08] MEDS: Aspirin Enteric Coated 81 MG Tablet PO SCH (09:37)
[2018-01-08] MEDS: Clotrimazole 1% CRM 15 GM TUBE TP SCH ×2 (11:33→22:24)
--- NOTE | 2018-01-08 12:39 | Nephrology Progress Note ---
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 Continue to avoid nephrotoxins if possible UOP great at 2000cc in the past 24hrs If discharged, can followup within 4 weeks at our office with BMP in a week (2) Chronic kidney disease Current Visit: Yes Status: Chronic Suspect baseline if stage 4 CKD but cannot prove without old labs Qualifiers: Chronic kidney disease stage: stage 3 (moderate) Qualified Code(s): N18.3 - Chronic kidney disease, stage 3 (moderate) (3) UTI (urinary tract infection) Current Visit: Yes Status: Resolved Per primary team Qualifiers: Urinary tract infection type: acute cystitis Hematuria presence: without hematuria Qualified Code(s): N30.00 - Acute cystitis without hematuria Subjective Principal diagnosis: MENA Interval history: Pt seen and examined resting comfortably but arousable with IVF in place Objective - Vital Signs Vital signs: Vital Signs Temp Pulse Resp BP Pulse Ox 01/08/18 11:39 97.6 F 86 18 108/75 92 01/08/18 08:10 97.7 F 82 18 108/72 95 01/08/18 03:58 97.4 F L 82 17 105/67 92 01/08/18 00:00 98.3 F 93 18 99/66 90 01/07/18 20:59 97.5 F L 92 17 121/65 90 01/07/18 20:38 97.5 F L 92 17 121/65 90 01/07/18 16:36 97.6 F 91 19 111/75 92 Intake and Output 01/07/18 01/08/18 01/08/18 23:59 07:59 15:59 Intake Total 480 / 480 720 / 720 Output Total 500 / 500 450 / 450 750 / 750 Balance -20 / -20 -450 / -450 -30 / -30 Intake: Oral 480 / 480 720 / 720 Output: Catheter 500 / 500 450 / 450 750 / 750 Other: Meal Breakfast Percent of Meal Consumed 100% Weight 99.2 kg Patient Weight 01/08/18 23:59 Weight 99.2 kg - General Appearance General appearance: Present: chronically ill, fatigue EENT: Present: ATNC, mucous membranes dry Neck: Present: no JVD, supple Respiratory: Present: clear (with transmitted upper airway sounds ant bilat) Cardiology: Present: edema, normal S1, normal S2 Gastrointestinal: Present: no tenderness, no guarding Integumentary: Present: warm and dry Neurologic: Present: no focal deficit (resting but arousable) Musculoskeletal: Present: no deformities Psychiatric: Present: mood/affect appropriate, cooperative - Lab 12/31/17 04:33 01/08/18 05:00 Most recent lab results Calcium 8.6 mg/dL (8.6-10.3) 01/08/18 05:00 Phosphorus 3.1 mg/dL (2.7-4.5) 01/02/18 07:34 Magnesium 2.1 mg/dL (1.6-2.6) 01/04/18 05:09 Urine Creatinine 83 mg/dL 12/30/17 11:24 Urine Sodium 63.7 mEq/L 12/29/17 18:36 Urine Total Protein 92 mg/dL (1-14) H 12/30/17 11:24 Consult Discharge Plan - Plan Additional Instructions: F/up with PCP in 1-2 weeks F/up with Nephrology in 3-4 weeks BMP 1 week prior to Nephrology appt Referrals: Kera Collins MD [Partnered Physician] - (waiting for the appt..) [facility] [Primary Care Provider] -
[2018-01-09] MEDS: 0.9 % Sodium Chloride 1,000 ML IVC SCH (01:59)
[2018-01-09 05:35] LABS: Basophils # 0.1 K/mcL (0.0-0.2); Basophils % 0.6 %; Eosinophils # 0.4 K/mcL (0.0-0.6); Eosinophils % 4.3 %; Hematocrit 39.2 % (37.5-50.1); Hemoglobin 12.9 g/dL (12.9-16.9); Immature Granulocytes % 1.2 % (0-4); Immature Platelets 6.3 % (1.1-6.1); Lymphocytes # 1.7 K/mcL (0.6-4.6); Lymphocytes % 17.5 %; Mean Corpuscular HGB Conc 32.9 g/dL (31.6-35.5); Mean Corpuscular Hemoglobin 31.1 pg (28.0-33.3); Mean Corpuscular Volume 94.5 fL (83.0-100.0); Mean Platelet Volume 10.6 fL (9.4-12.4); Monocytes % 10.2 %; Neutrophils # 6.5 K/mcL (1.6-8.9); Platelet Count 160 K/mcL (140-400); Red Blood Count 4.15 M/mcL (4.19-5.50); Red Cell Distribution Width 13.4 % (11.5-14.5); Segmented Neutrophils % 66.2 %
[2018-01-09 05:47] LABS: Calcium 8.7 mg/dL (8.6-10.3)
[2018-01-09] MEDS: *HR* Heparin 5,000 UNIT/ML VIAL SQ SCH ×2 (06:16→17:19)
--- NOTE | 2018-01-09 08:24 | Internal Med Progress Note ---
Date of Encounter: 01/09/18 Time of Encounter: 08:20 - Assessment and plan (1) Acute renal failure Current Visit: Yes Status: Acute Assessment and plan: Came in with nonoliguric acute on chronic renal failure, unknown baseline serum creatinine, but probably around 2.5; Chronic kidney disease was documented in his past medical history from [place] records. Noted to be on diuretic as an outpatient, currently on hold. Creatinine has improved to 2.7 with IV fluid hydration. Will d/c IV fluids due to histroy of cardiomyopathy Nephrology on board, agree with IV fluids. 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 Qualifiers: Acute renal failure type: unspecified Qualified Code(s): N17.9 - Acute kidney failure, unspecified (2) Chronic kidney disease Current Visit: Yes Status: Chronic Assessment and plan: Suspect baseline is stage 4 cKD per renal. Qualifiers: Chronic kidney disease stage: stage 4 (severe) Qualified Code(s): N18.4 - Chronic kidney disease, stage 4 (severe) (3) UTI (urinary tract infection) Current Visit: Yes Status: Resolved Assessment and plan: Urinalysis suggestive of UTI. Urine culture noted to be grossly mixed and contaminated. Completed a 5 day course of IV Rocephin. Qualifiers: Urinary tract infection type: acute cystitis Hematuria presence: without hematuria Qualified Code(s): N30.00 - Acute cystitis without hematuria (4) Hx of congestive heart failure Current Visit: Yes Status: Chronic Assessment and plan: Noted to be on beta scott and diuretic as an outpatient. Hold Lasix for now. (5) Schizophrenia Current Visit: Yes Status: Chronic Assessment and plan: Continue to closely monitor patient and continue home meds; Qualifiers: Schizophrenia type: unspecified Qualified Code(s): F20.9 - Schizophrenia, unspecified (6) Tobacco abuse Current Visit: Yes Status: Chronic Assessment and plan: Continue nicotine patch. (7) Right groin wound Current Visit: Yes Status: Chronic Assessment and plan: Likely fungal due to moisture. continue clotrimazole cream , wound care recs appreciated Qualifiers: Encounter type: initial encounter Qualified Code(s): S31.109A - Unspecified open wound of abdominal wall, unspecified quadrant without penetration into peritoneal cavity, initial encounter (8) Bipolar disorder Current Visit: Yes Status: Chronic Assessment and plan: Continue seroquel Qualifiers: Active/Remission status: remission status unspecified Qualified Code(s): F31.9 - Bipolar disorder, unspecified (9) Essential hypertension Current Visit: Yes Status: Chronic Assessment and plan: BP noted to be elevated; continue Norvasc and continue beta scott; monitor BP closely; - Time Spent With Patient Total time spent is greater than 50% in coordination of care (as documented) at patient's floor/unit and/or counseling patient: - Subjective Interval history: No acute events overnight - Constitutional Vitals: Temp Pulse Resp BP Pulse Ox 97.4 F L 87 19 118/79 94 01/09/18 06:58 01/09/18 06:58 01/09/18 06:58 01/09/18 06:58 01/09/18 06:58 General appearance: Present: A&O X 2, no acute distress. Absent: answers questions appropriately - Head Head exam: Present: atraumatic, normocephalic - Eye Eye exam: Present: PERRL, conjuntiva pink, sclera anicteric Pupils: Present: PERRL - Neck Neck exam general surgery: Present: supple, trachea midline. Absent: lymphadenopathy - Respiratory Respiratory exam: Present: CTAB. Absent: accessory muscle use, rales, rhonchi, wheezes - Cardiovascular Cardiovascular exam: Present: RRR, +S1, +S2. Absent: diastolic murmur, gallop, rubs, systolic murmur - GI/Abdominal GI/Abdominal exam: Present: normal bowel sounds, soft, no peritoneal signs. Absent: distended, tenderness - Extremities Exam Extremities exam: Present: warm, radial pulses palpable and symmetrical. Absent : calf tenderness, cyanotic, pedal edema - Neurological Exam Neurological exam: Present: CN II-XII intact, oriented X3, no focal deficits. Absent: pronater drift, facial droop, speech deficit - Skin Skin exam: Present: dry, intact Internal Medicine: Result - Labs CBC & Chem 7: 01/09/18 05:07 01/09/18 05:07 Labs: Short CBC 01/09/18 Range/Units 05:07 WBC 9.8 (4.3-11.1) K/mcL Hgb 12.9 (12.9-16.9) g/dL Hct 39.2 (37.5-50.1) % Plt Count 160 (140-400) K/mcL Neutrophils # 6.5 (1.6-8.9) K/mcL BMP 01/09/18 05:07 Sodium 132 L Potassium 5.0 Chloride 107 Carbon Dioxide 17 L BUN 60 H Creatinine 2.73 H Glucose 169 H Calcium 8.7 Consult Discharge Plan - Plan Additional Instructions: F/up with PCP in 1-2 weeks F/up with Nephrology in 3-4 weeks BMP 1 week prior to Nephrology appt Referrals: Kera Collins MD [Partnered Physician] - (waiting for the appt.. office will call back) [facility] [Primary Care Provider[facility] - (patient is going to [facility])
[2018-01-09] MEDS: amLODIPine 5 MG TABLET PO SCH (09:36)
[2018-01-09] MEDS: Nicotine 21 MG PATCH.TD24 TD SCH (09:36)
[2018-01-09] MEDS: Metoprolol XL (24 HR) Succ 25 MG TAB.ER.24H PO SCH (09:37)
[2018-01-09] MEDS: Aspirin Enteric Coated 81 MG Tablet PO SCH (09:37)
--- NOTE | 2018-01-09 12:59 | Nephrology Progress Note ---
Date of Encounter: 01/09/18 Time of Encounter: 12:00 - Assessment and Plan (1) MENA (acute kidney injury) Current Visit: Yes Status: Acute SCr worse again at 3.12, GFR 20 suspect pre-renal, agree with IVF No acute indication for BULK STATION AGENT at this time Continue to avoid nephrotoxins if possible UOP great at 2000cc in the past 24hrs If discharged, can followup within 4 weeks at our office with BMP in a week (2) Chronic kidney disease Current Visit: Yes Status: Chronic Suspect baseline if stage 4 CKD but cannot prove without old labs Qualifiers: Chronic kidney disease stage: stage 4 (severe) Qualified Code(s): N18.4 - Chronic kidney disease, stage 4 (severe) (3) UTI (urinary tract infection) Current Visit: Yes Status: Resolved Per primary team Qualifiers: Urinary tract infection type: acute cystitis Hematuria presence: without hematuria Qualified Code(s): N30.00 - Acute cystitis without hematuria Subjective Principal diagnosis: MENA Interval history: Pt seen and examined resting comfortably but arousable with IVF in place Objective - Vital Signs Vital signs: Vital Signs Temp Pulse Resp BP Pulse Ox 01/09/18 11:17 97.4 F L 87 18 130/83 91 01/09/18 06:58 97.4 F L 87 19 118/79 94 01/09/18 05:24 98.1 F 88 18 98/69 90 01/09/18 01:17 98.3 F 86 18 110/67 96 01/08/18 21:01 98.1 F 94 18 104/68 94 01/08/18 15:33 97.6 F 94 18 102/62 92 Intake and Output 01/08/18 01/09/18 01/09/18 23:59 07:59 15:59 Intake Total 2187 / 2187 500 / 500 693 / 693 Output Total 850 / 850 1800 / 1800 1000 / 1000 Balance 1337 / 1337 -1300 / -1300 -307 / -307 Intake: IV Fluids 487 / 487 500 / 500 453 / 453 0.9 % Sodium Chloride 1,000 ML 487 / 487 500 / 500 453 / 453 @ 60 mls/hr IVC .[id number] [facility] Rx #:[id number] Oral 1700 / 1700 0 / 0 240 / 240 Output: Catheter 850 / 850 1800 / 1800 1000 / 1000 Other: Meal Dinner Breakfast Percent of Meal Consumed 100% 100% Weight 99.4 kg Patient Weight 01/09/18 23:59 Weight 99.4 kg - Lab 01/09/18 05:07 01/09/18 05:07 Most recent lab results Calcium 8.7 mg/dL (8.6-10.3) 01/09/18 05:07 Phosphorus 3.1 mg/dL (2.7-4.5) 01/02/18 07:34 Magnesium 2.1 mg/dL (1.6-2.6) 01/04/18 05:09 Urine Creatinine 83 mg/dL 12/30/17 11:24 Urine Sodium 63.7 mEq/L 12/29/17 18:36 Urine Total Protein 92 mg/dL (1-14) H 12/30/17 11:24 Consult Discharge Plan - Plan Additional Instructions: F/up with PCP in 1-2 weeks F/up with Nephrology in 3-4 weeks BMP 1 week prior to Nephrology appt Referrals: Kera Collins MD [Partnered Physician] - (waiting for the appt.. office will call back) [facility] - (patient is going to [facility])
[2018-01-09] MEDS: Clotrimazole 1% CRM 15 GM TUBE TP SCH ×2 (17:20→22:16)
[2018-01-10] MEDS: *HR* Heparin 5,000 UNIT/ML VIAL SQ SCH (04:36)
[2018-01-10 06:31] LABS: Basophils % 0.4 %; Eosinophils # 0.4 K/mcL (0.0-0.6); Hematocrit 39.1 % (37.5-50.1); Hemoglobin 12.7 g/dL (12.9-16.9); Lymphocytes # 1.6 K/mcL (0.6-4.6); Lymphocytes % 16.4 %; Mean Corpuscular HGB Conc 32.5 g/dL (31.6-35.5); Mean Corpuscular Hemoglobin 30.5 pg (28.0-33.3); Mean Platelet Volume 10.6 fL (9.4-12.4); Monocytes % 10.9 %; Neutrophils # 6.4 K/mcL (1.6-8.9); Platelet Count 167 K/mcL (140-400); Red Blood Count 4.16 M/mcL (4.19-5.50); Red Cell Distribution Width 13.4 % (11.5-14.5); Segmented Neutrophils % 67.3 %
[2018-01-10 06:52] LABS: Potassium 5.3 mEq/L (3.5-5.1)
--- NOTE | 2018-01-10 07:53 | Internal Med Progress Note ---
Date of Encounter: 01/10/18 Time of Encounter: 07:50 - Assessment and plan (1) Acute renal failure Current Visit: Yes Status: Acute Assessment and plan: Came in with nonoliguric acute on chronic renal failure, unknown baseline serum creatinine, but probably around 2.5; Chronic kidney disease was documented in his past medical history from [place] records. Noted to be on diuretic as an outpatient, currently on hold. Creatinine worsened to 2.9 after fluids were discontinued. Will resume IV fluids Nephrology on board, agree with IV fluids. No indication for WATER HAULER Aranda catheter was replaced due to significant urinary incontinence and presence of severe perineal and inguinal wounds. Qualifiers: Acute renal failure type: unspecified Qualified Code(s): N17.9 - Acute kidney failure, unspecified (2) Chronic kidney disease Current Visit: Yes Status: Chronic Assessment and plan: Suspect baseline is stage 4 cKD per renal. Qualifiers: Chronic kidney disease stage: stage 4 (severe) Qualified Code(s): N18.4 - Chronic kidney disease, stage 4 (severe) (3) UTI (urinary tract infection) Current Visit: Yes Status: Resolved Assessment and plan: Urinalysis suggestive of UTI. Urine culture noted to be grossly mixed and contaminated. Completed a 5 day course of IV Rocephin. Qualifiers: Urinary tract infection type: acute cystitis Hematuria presence: without hematuria Qualified Code(s): N30.00 - Acute cystitis without hematuria (4) Hx of congestive heart failure Current Visit: Yes Status: Chronic Assessment and plan: Noted to be on beta scott and diuretic as an outpatient. Hold Lasix for now. (5) Schizophrenia Current Visit: Yes Status: Chronic Assessment and plan: Continue to closely monitor patient and continue home meds; Qualifiers: Schizophrenia type: unspecified Qualified Code(s): F20.9 - Schizophrenia, unspecified (6) Tobacco abuse Current Visit: Yes Status: Chronic Assessment and plan: Continue nicotine patch. (7) Right groin wound Current Visit: Yes Status: Chronic Assessment and plan: Likely fungal due to moisture. continue clotrimazole cream , wound care recs appreciated Qualifiers: Encounter type: initial encounter Qualified Code(s): S31.109A - Unspecified open wound of abdominal wall, unspecified quadrant without penetration into peritoneal cavity, initial encounter (8) Bipolar disorder Current Visit: Yes Status: Chronic Assessment and plan: Continue seroquel Qualifiers: Active/Remission status: remission status unspecified Qualified Code(s): F31.9 - Bipolar disorder, unspecified (9) Essential hypertension Current Visit: Yes Status: Chronic Assessment and plan: BP noted to be elevated; continue Norvasc and continue beta scott; monitor BP closely; - Time Spent With Patient Total time spent is greater than 50% in coordination of care (as documented) at patient's floor/unit and/or counseling patient: - Subjective Interval history: No acute events overnight - Constitutional Vitals: Temp Pulse Resp BP Pulse Ox 97.9 F 88 19 129/77 92 01/10/18 06:50 01/10/18 06:50 01/10/18 06:50 01/10/18 06:50 01/10/18 06:50 General appearance: Present: A&O X 2, no acute distress. Absent: answers questions appropriately - Head Head exam: Present: atraumatic, normocephalic - Eye Eye exam: Present: PERRL, conjuntiva pink, sclera anicteric Pupils: Present: PERRL - Neck Neck exam general surgery: Present: supple, trachea midline. Absent: lymphadenopathy - Respiratory Respiratory exam: Present: CTAB. Absent: accessory muscle use, rales, rhonchi, wheezes - Cardiovascular Cardiovascular exam: Present: RRR, +S1, +S2. Absent: diastolic murmur, gallop, rubs, systolic murmur - GI/Abdominal GI/Abdominal exam: Present: normal bowel sounds, soft, no peritoneal signs. Absent: distended, tenderness - Extremities Exam Extremities exam: Present: warm, radial pulses palpable and symmetrical. Absent : calf tenderness, cyanotic, pedal edema - Neurological Exam Neurological exam: Present: CN II-XII intact, oriented X3, no focal deficits. Absent: pronater drift, facial droop, speech deficit - Skin Skin exam: Present: dry, intact Internal Medicine: Result - Labs CBC & Chem 7: 01/10/18 06:10 01/10/18 06:10 Labs: Short CBC 01/10/18 Range/Units 06:10 WBC 9.5 (4.3-11.1) K/mcL Hgb 12.7 L (12.9-16.9) g/dL Hct 39.1 (37.5-50.1) % Plt Count 167 (140-400) K/mcL Neutrophils # 6.4 (1.6-8.9) K/mcL BMP 01/10/18 06:10 Sodium 134 L Potassium 5.3 H Chloride 107 Carbon Dioxide 21 L BUN 56 H Creatinine 2.98 H Glucose 169 H Calcium 9.0 Consult Discharge Plan - Plan Additional Instructions: F/up with PCP in 1-2 weeks F/up with Nephrology in 3-4 weeks BMP 1 week prior to Nephrology appt Referrals: Kera Collins MD [Partnered Physician] - (waiting for the appt.. office will call back) [facility] Care Provider[facility] - ([facility])
[2018-01-10] MEDS ORDERED: 0.9 % Sodium Chloride 1,000 ML IVC SCH (08:00)
[2018-01-10] MEDS: Metoprolol XL (24 HR) Succ 25 MG TAB.ER.24H PO SCH (09:02)
[2018-01-10] MEDS: Aspirin Enteric Coated 81 MG Tablet PO SCH (09:02)
[2018-01-10] MEDS: Nicotine 21 MG PATCH.TD24 TD SCH (09:02)
[2018-01-10] MEDS: amLODIPine 5 MG TABLET PO SCH (09:02)
[2018-01-10] MEDS: Clotrimazole 1% CRM 15 GM TUBE TP SCH (09:05)
--- NOTE | 2018-01-10 10:38 | Nephrology Progress Note ---
Date of Encounter: 01/10/18 Time of Encounter: 10:35 - Assessment and Plan (1) MENA (acute kidney injury) Current Visit: Yes Status: Acute Kidney function stable with Scr 2.98 and GFR 21 No acute indication for CESSATION SYSTEMS OUTREACH SPECIALIST at this time Avoid nephrotoxins UOP robust-4900ml yesterday, already has 1000ml out this morning F/U in office in 4 weeks with BMP in 1 week after discharge (2) Chronic kidney disease Current Visit: Yes Status: Chronic Suspect baseline CKD stage 4 but unproven without past labs Qualifiers: Chronic kidney disease stage: stage 4 (severe) Qualified Code(s): N18.4 - Chronic kidney disease, stage 4 (severe) (3) Schizophrenia Current Visit: Yes Status: Chronic per primary team Qualifiers: Schizophrenia type: unspecified Qualified Code(s): F20.9 - Schizophrenia, unspecified Subjective Principal diagnosis: MENA Interval history: Patient seen and examined, sleeping restlessly. Objective - Vital Signs Vital signs: Vital Signs Temp Pulse Resp BP Pulse Ox 01/10/18 06:50 97.9 F 88 19 129/77 92 01/10/18 05:35 94 01/10/18 05:07 97.8 F 89 18 118/72 90 01/09/18 23:27 98.1 F 93 20 112/71 90 01/09/18 20:06 97.8 F 95 18 113/68 90 01/09/18 16:51 97.8 F 85 19 123/82 90 01/09/18 11:17 97.4 F L 87 18 130/83 91 Intake and Output 01/09/18 01/10/18 01/10/18 23:59 07:59 15:59 Intake Total 880 / 880 Output Total 1600 / 1600 1000 / 1000 Balance -720 / -720 -1000 / -1000 Intake: Oral 880 / 880 Output: Catheter 1600 / 1600 1000 / 1000 Other: Meal cereal Percent of Meal Consumed 100% - General Appearance General appearance: Present: well-developed EENT: Present: ATNC Neck: Present: supple Respiratory: Present: clear Cardiology: Present: no edema, normal S1, normal S2 Gastrointestinal: Present: no guarding - Lab 01/10/18 06:10 01/10/18 06:10 Most recent lab results Calcium 9.0 mg/dL (8.6-10.3) 01/10/18 06:10 Phosphorus 3.1 mg/dL (2.7-4.5) 01/02/18 07:34 Magnesium 2.1 mg/dL (1.6-2.6) 01/04/18 05:09 Urine Creatinine 83 mg/dL 12/30/17 11:24 Urine Sodium 63.7 mEq/L 12/29/17 18:36 Urine Total Protein 92 mg/dL (1-14) H 12/30/17 11:24 Consult Discharge Plan - Plan Additional Instructions: F/up with PCP in 1-2 weeks F/up with Nephrology in 3-4 weeks BMP 1 week prior to Nephrology appt Referrals: Kera Collins MD [Partnered Physician] - (waiting for the appt.. office will call back) [facility] [Primary Care Provider[facility] - ([facility] to [facility])
[2018-01-10 11:17] VITALS: BP 119/75
--- NOTE | 2018-01-10 15:22 | Physician Discharge Referral ---
- Diagnosis (1) Acute renal failure Priority: Primary Status: Acute (2) Chronic kidney disease Status: Chronic (3) UTI (urinary tract infection) Status: Resolved (4) Hx of congestive heart failure Status: Chronic (5) Schizophrenia Status: Chronic (6) Tobacco abuse Status: Chronic (7) Right groin wound Status: Chronic (8) Bipolar disorder Status: Chronic (9) Essential hypertension Status: Chronic - Transfer Medications Prescriptions: amLODIPine [Norvasc] 5 mg PO DAILY #60 tablet Home Medications: Aspirin [Lo-Dose Aspirin EC] 81 mg PO DAILY 12/30/17 [History] Cholecalciferol (D-3) [Vitamin D] 1,000 unit PO DAILY 12/30/17 [History] Metoprolol Succinate [Toprol Xl] 25 mg PO DAILY 12/30/17 [History] Quetiapine Fumarate [Seroquel] 200 mg PO QAM 12/30/17 [History] Quetiapine Fumarate [Seroquel] 400 mg PO QPM 12/30/17 [History] Terazosin HCl 2 mg PO HS 12/30/17 [History] amLODIPine [Norvasc] 5 mg PO DAILY #60 tablet 01/10/18 [Rx] Allergies/Adverse Reactions: 3 Allergy/AdvReac Type Severity Reaction Status Date / Time haloperidol [From Haldol] AdvReac Intermediate Agitated Verified 12/31/17 13:54 - Respiratory Orders Smoking Cessation: Smoking cessation has been advised. For more information, call the [place] Tobacco Quit Line at 2-749-DUXH-NOW. - Mobility Orders Ambulate - Rehabiliation Orders Rehab Potential: Good - Diet Orders Cardiac CERTIFICATION: I certify that the transfer of the above named patient to an Extended Care Facility is necessary for the continuing treatment of the diagnosis listed. The above information is true and accurate reflection of patient's current condition. Confidential - Redisclosure prohibited without a patient's written consent.
--- NOTE | 2018-01-10 15:26 | Discharge Summary ---
Orders not resulted at time of discharge: Pending orders 01/11/18 04:00 Basic Metabolic Panel AM 0400 CBC [Complete Blood Count] [HEME] AM 0400 01/12/18 04:00 Basic Metabolic Panel AM 0400 CBC [Complete Blood Count] [HEME] AM 0400 01/13/18 04:00 Basic Metabolic Panel AM 0400 CBC [Complete Blood Count] [HEME] AM 0400 01/14/18 04:00 Basic Metabolic Panel AM 0400 CBC [Complete Blood Count] [HEME] AM 0400 Date of Encounter: 01/10/18 Time of Encounter: 15:20 - Discharge Diagnosis (1) Acute renal failure Priority: Primary Status: Acute Assessment and Plan: 67 year old male transferred from [facility] to our ER for fall and acute renal failure. Past medical history is significant for schizophrenia and CKD per [place] records. No available baseline creatinine. In [facility] [facility], patient was found creatinine high to 4.03. He was assessed with acute renal failure and UTI. He was started on IV fluids and ceftriaxone. He was seen by renal who agreed with IV fluids and renal ultrasound to rule out obstruction. Renal ultrasound came back negative for hydronephrosis. He completed a 5 day course of rocephin for UTI. His creatinine has improved with fluids. He is recommended to stop diuretics and follow up with nephrology as an outpatient. A toth catheter was placed to facilitate easy healing of groin wounds. He was discharged to [place] in a stable condition. 35minutes was spent discharging this patient . Qualifiers: Acute renal failure type: unspecified Qualified Code(s): N17.9 - Acute kidney failure, unspecified (2) Chronic kidney disease Priority: Secondary Status: Chronic Qualifiers: Chronic kidney disease stage: stage 4 (severe) Qualified Code(s): N18.4 - Chronic kidney disease, stage 4 (severe) (3) UTI (urinary tract infection) Priority: Secondary Status: Resolved Assessment and Plan: Urinalysis suggestive of UTI. Urine culture noted to be grossly mixed and contaminated. Completed a 5 day course of IV Rocephin. Qualifiers: Urinary tract infection type: acute cystitis Hematuria presence: without hematuria Qualified Code(s): N30.00 - Acute cystitis without hematuria (4) Hx of congestive heart failure Priority: Secondary Status: Chronic (5) Schizophrenia Priority: Secondary Status: Chronic Qualifiers: Schizophrenia type: unspecified Qualified Code(s): F20.9 - Schizophrenia, unspecified (6) Tobacco abuse Priority: Secondary Status: Chronic (7) Right groin wound Priority: Secondary Status: Chronic Qualifiers: Encounter type: initial encounter Qualified Code(s): S31.109A - Unspecified open wound of abdominal wall, unspecified quadrant without penetration into peritoneal cavity, initial encounter (8) Bipolar disorder Priority: Secondary Status: Chronic Qualifiers: Active/Remission status: remission status unspecified Qualified Code(s): F31.9 - Bipolar disorder, unspecified (9) Essential hypertension Priority: Secondary Status: Chronic Hospital course: Mr. Mendiola is a 67 year old male - Time Spent with Patient Total time spent providing and/or coordinating discharge services: - Discharge Medications Prescriptions: amLODIPine [Norvasc] 5 mg PO DAILY #60 tablet Home Medications: Aspirin [Lo-Dose Aspirin EC] 81 mg PO DAILY 12/30/17 [History] Cholecalciferol (D-3) [Vitamin D] 1,000 unit PO DAILY 12/30/17 [History] Metoprolol Succinate [Toprol Xl] 25 mg PO DAILY 12/30/17 [History] Quetiapine Fumarate [Seroquel] 200 mg PO QAM 12/30/17 [History] Quetiapine Fumarate [Seroquel] 400 mg PO QPM 12/30/17 [History] Terazosin HCl 2 mg PO HS 12/30/17 [History] amLODIPine [Norvasc] 5 mg PO DAILY #60 tablet 01/10/18 [Rx] Allergies/Adverse Reactions: 3 Allergy/AdvReac Type Severity Reaction Status Date / Time haloperidol [From Haldol] AdvReac Intermediate Agitated Verified 12/31/17 13:54 Date of admission: 12/29/17 21:21 [facility] care physician: [facility] Consults: 12/30/17 07:46 Consult to Wound Care [CONS] Routine Reason for Consult: Please see nurse note. Wounds to groin, right side worse than left and wounds surrounding anus. Time Notified: 07:47 Call Completed: Yes 01/08/18 12:59 Consult to Occupational Therapy [CONS] Routine Comment: Evaluate, develop and implement POC Reason for Consult: eval for poss placement Does patient have active BEDREST order?: No Is patient medically & hemodynamically stable?: Yes - Constitutional Vitals: Temp Pulse Resp BP Pulse Ox 97.3 F L 66 22 119/75 94 01/10/18 11:14 01/10/18 11:14 01/10/18 11:14 01/10/18 11:14 01/10/18 11:14 General appearance: Present: A&O X 2, no acute distress. Absent: answers questions appropriately - Patient Status Disposition: Transfer Other Condition: Fair - Discharge Instructions Follow Up With: Kera Collins MD [Partnered Physician] - (waiting for the appt.. office will call back) [facility] [Primary Care Provider[facility] - (patient is going to [facility]) Additional Instructions: F/up with PCP in 1-2 weeks F/up with Nephrology in 3-4 weeks BMP 1 week prior to Nephrology appt
== END 2018-01-10 16:06 | disposition other institution (70) | DRG 683 ==
LOC: EMEROO 18:15 → 2ANU 18:15 → MERGE 21:21 → SUATTDRO 21:21
PROVIDERS: ADMIT Internal Medicine; ATTEND Internal Medicine